=== PATIENT | male | born 1945 | race Caucasian/White ===

== ENCOUNTER 2018-05-19 09:34 | Emergency (ER) | payer OTHER ==
--- NOTE | 2018-05-19 09:59 | EDM.PDOC ---
ED HPI GENERAL MEDICAL PROBLEM - General Chief Complaint: General Stated Complaint: NEEDS PEG TUBE REPLACED Time Seen by Provider: 05/19/18 09:50 Source of Information: Reports: [facility] Records, Other (nursing clinical director) - History of Present Illness INITIAL COMMENTS - FREE TEXT/NARRATIVE: 72 YO WM presents to ER with complaints of PEG tube displaced this am. Pt tolerates food by mouth but he is an aspiration risk with his medications so he receives those through his PEG tube. Pt without any complaints. No sign of erythema or pus around stoma. Will replace with a temporary segal catheter. Onset: Today Location: Reports: Abdomen Improves with: Reports: None Worsens with: Reports: None Associated Symptoms: Reports: No Other Symptoms - Related Data Allergies Allergy/AdvReac Type Severity Reaction Status Date / Time amoxicillin Allergy Rash Verified 03/29/15 12:04 Home Meds: Home Meds . [Unable to Verify Home Med List] 03/29/15 [History] ED ROS GENERAL - Review of Systems Review Of Systems: ROS reveals no pertinent complaints other than HPI. Constitutional: Reports: No Symptoms HEENT: Reports: No Symptoms Respiratory: Reports: No Symptoms Cardiovascular: Reports: No Symptoms Endocrine: Reports: No Symptoms GI/Abdominal: Reports: No Symptoms : Reports: No Symptoms Musculoskeletal: Reports: No Symptoms Skin: Reports: No Symptoms Neurological: Reports: Confusion Psychiatric: Reports: Confusion Hematologic/Lymphatic: Reports: No Symptoms Immunologic: Reports: No Symptoms ED EXAM, GENERAL - Physical Exam Exam: See Below Exam Limited By: No Limitations General Appearance: Alert, WD/WN, No Apparent Distress Nose: Normal Inspection, Normal Mucosa, No Blood Throat/Mouth: Normal Inspection, Normal Lips, Normal Teeth, Normal Gums, Normal Oropharynx, Normal Voice, No Airway Compromise Head: Atraumatic, Normocephalic Neck: Normal Inspection, Supple, Non-Tender, Full Range of Motion Respiratory/Chest: No Respiratory Distress, Lungs Clear, Normal Breath Sounds, No Accessory Muscle Use, Chest Non-Tender Cardiovascular: Normal Peripheral Pulses, Regular Rate, Rhythm, No Edema, No Gallop, No JVD, No Murmur, No Rub GI/Abdominal: Normal Bowel Sounds, Soft, Non-Tender, No Organomegaly, No Distention, No Abnormal Bruit, No Mass Back Exam: Normal Inspection, Full Range of Motion, NT Extremities: Normal Inspection, Normal Range of Motion, Non-Tender, Normal Capillary Refill, No Pedal Edema Neurological: Alert, Confused Psychiatric: Normal Affect, Normal Mood Skin Exam: Warm, Dry, Intact, Normal Color, No Rash Lymphatic: No Adenopathy Departure - Departure Time of Disposition: 10:14 Disposition: DC/Tfer to [facility] 65 Condition: Good Clinical Impression: PEG tube malfunction - Discharge Information Instructions: Gastrostomy Tube Replacement Referrals: Dinesh Koch MD [Primary Care Provider] - Forms: ED Department Discharge Additional Instructions: 1. Discharge to [place] 2. follow up with GI for PEG tube replacement 3. return to ER for worsening symptoms 4. Okay to use segal/G tube replacement for meds and feedings - Assessment/Plan Assessment:: 1. PEG tube displaced- 16F segal catheter replaced since no G tube available Plan: 1. Discharge to [place] 2. follow up with GI for PEG tube replacement 3. return to ER for worsening symptoms 4. Okay to use segal/G tube replacement for meds and feedings - Free Text/Narrative Note: PEG tube replacement- area around stoma clean/prepped and draped using sterile technique. 16F segal catheter placed without complication. Balloon inflated and segal/replacement PEG flushes without difficulty. Pt tolerated procedure well.
== END 2018-05-19 10:30 ==
LOC: KA.ED 09:34
DX: K94.23 Gastrostomy malfunction (principal); Z88.1 Allergy status to other antibiotic agents
CPT/HCPCS: 43760; 99284

== ENCOUNTER 2018-05-20 03:34 | Inpatient (IN) | payer MEDICARE, OTHER ==
--- NOTE | 2018-05-20 03:54 | EDM.PDOC ---
ED HPI GENERAL MEDICAL PROBLEM - General Chief Complaint: General Stated Complaint: Altered mental status Time Seen by Provider: 05/20/18 03:34 Source of Information: Reports: EMS, [facility] Records History Limitations: Reports: Altered Mental Status - History of Present Illness INITIAL COMMENTS - FREE TEXT/NARRATIVE: 72 YO WM presents to ER by EMS with episode tonight at [place] where he pulled his PEG tube out and became unresponsive per retirement report. Pt had initial blood pressure systolically in the 80's prompting call to EMS. Upon EMS arrival pts blood pressure was systolically in the 90s. Pt with history of dementia and leukemia. Pt alert by nonverbal on inital exam. Pt was seen by me 12 hours ago for PEG tube replacement and was of similar mental status at that time which according to [employer] ATTENDANT who transported pt at that time was his baseline mental status. Onset: Sudden Location: Reports: Generalized Improves with: Reports: None Worsens with: Reports: None Associated Symptoms: Reports: Confusion - Related Data Allergies Allergy/AdvReac Type Severity Reaction Status Date / Time amoxicillin Allergy Rash Verified 05/20/18 03:49 gabapentin Allergy Cannot Verified 05/20/18 03:49 Remember Home Meds: Home Meds Acetaminophen [Tylenol Solution 160 MG/5 ML] 160 mg PO Q6H 05/19/18 [History] Atovaquone 10 ml PO DAILY@1300 05/19/18 [History] Bisacodyl [Biscolax] 10 mg RC DAILY PRN 05/19/18 [History] Cholecalciferol (Vitamin D3) [Vitamin D3] 1,000 unit PO DAILY@0300 05/19/18 [ History] Dextran 70/Hypromellose [Artificial Tears] 1 drop EYEBOTH TID 05/19/18 [History] Guar Gum [Nutrisource Fiber] 1 each PO TID 05/19/18 [History] Insulin Aspart [NovoLOG] 0 unit SUBCUT WITHMEALSANDBED PRN 05/19/18 [History] Insulin Glarg,Human.Rec.Analog [Lantus Solostar] 5 unit SUBCUT BEDTIME 05/19/18 [History] Lactose-Reduced Food/Fiber [Isosource 1.5 Hola Tube Feed] 70 ml PEGTUBE ASDIRECTED 05/19/18 [History] Magnesium Hydroxide [Milk of Magnesia] 30 ml PO DAILY PRN 05/19/18 [History] Magnesium Oxide 400 mg PO 5XDAY 05/19/18 [History] Metoprolol Tartrate 12.5 mg PO BID 05/19/18 [History] Multivitamin [Daily Multiple Vitamin] 1 tab PO DAILY@0300 05/19/18 [History] NaPh,Mb-Db/K Ph,MB-DB [Phos-NaK Powder] 1 each PO BID 05/19/18 [History] Omeprazole Suspension 20 mg GTUBE DAILY 05/19/18 [History] Posaconazole [Noxafil] 200 mg PO TID 05/19/18 [History] Potassium Bicarbonate/Cit Ac [Effer-K] 20 meq PO DAILY@1300 05/19/18 [History] QUEtiapine Fumarate [Quetiapine Fumarate] 12.5 mg PO BEDTIME 05/19/18 [History] Sodium Chloride 0.9% [Saline Flush Sterile Syringe] 10 ml FLUSH BID 05/19/18 [ History] Sucralfate [Carafate] 10 ml PO QID 05/19/18 [History] Tacrolimus [Prograf] 1 mg PO BID 05/19/18 [History] Tamsulosin HCl [Flomax] 0.8 mg PO DAILY@1800 05/19/18 [History] Ursodiol 300 mg PO TID 05/19/18 [History] Venlafaxine HCl [Venlafaxine HCl ER] 75 mg PO DAILY 05/19/18 [History] predniSONE [Prednisone] 2.5 mg PO DAILY 05/19/18 [History] traMADol HCl [Tramadol HCl] 50 mg PO Q6H PRN 05/19/18 [History] traMADol [Ultram] 50 mg PO BID 05/19/18 [History] valACYclovir HCl [valACYclovir] 1,000 mg PO TID 05/19/18 [History] ED ROS GENERAL - Review of Systems Review Of Systems: ROS reveals no pertinent complaints other than HPI. Neurological: Reports: Confusion ED EXAM, GENERAL - Physical Exam Exam: See Below Exam Limited By: Altered Mental Status General Appearance: Alert, WD/WN, No Apparent Distress Eye Exam: Bilateral Eye: PERRL Head: Atraumatic, Normocephalic Neck: Normal Inspection, Supple, Non-Tender, Full Range of Motion Respiratory/Chest: No Respiratory Distress, Lungs Clear, Normal Breath Sounds, No Accessory Muscle Use, Chest Non-Tender Cardiovascular: Normal Peripheral Pulses, Regular Rate, Rhythm, No Edema, No Gallop, No JVD, No Murmur, No Rub GI/Abdominal: Normal Bowel Sounds, Soft, No Organomegaly, No Distention, No Abnormal Bruit, No Mass, Tender (tenderness around stoma from displaced PEG tube ) Extremities: Normal Inspection, Normal Range of Motion, Non-Tender, Normal Capillary Refill, No Pedal Edema Neurological: Alert, CN II-XII Intact, Normal Reflexes, No Motor/Sensory Deficits, Inattentive, Confused Psychiatric: Normal Affect, Depressed Mood Skin Exam: Warm, Dry, Intact, Normal Color, No Rash Lymphatic: No Adenopathy EKG INTERPRETATION EKG Date: 05/20/18 Time: 04:14 Rhythm: NSR Rate (Beats/Min): 103 [place]: Normal P-Wave: Present QRS: Normal ST-T: Normal QT: Normal Comparison: NA - No Prior EKG Course - Vital Signs Last Recorded V/S: Last Vital Signs Temp 36.6 C 05/20/18 03:40 Pulse 102 H 05/20/18 03:40 Resp 16 05/20/18 03:40 BP 95/60 05/20/18 03:40 Pulse Ox 96 05/20/18 03:40 - Orders/Labs/Meds Orders: Active Orders 24 hr Category Date Time Status Cardiac Monitoring [RC] . DIRECTED Care 05/20/18 03:59 Ordered EKG Documentation Completion [RC] ASDIRECTED Care 05/20/18 03:47 Active Abdomen 1V Flat [CR] Stat Exams 05/20/18 03:45 Ordered Chest 1V Frontal [CR] Stat Exams 05/20/18 03:45 Ordered Head wo Cont [CT] Stat Exams 05/20/18 04:25 Ordered EKG 12 Lead [EK] Routine Ther 05/20/18 03:45 Ordered Labs: Laboratory Tests 05/20/18 05/20/18 05/20/18 Range/Units 03:55 04:10 04:10 WBC 10.04 H (5.00-10.00) 10^3/uL RBC 2.95 L (4.50-6.00) 10^6/uL Hgb 11.7 L (13.0-17.0) g/dL Hct 32.8 L (40.0-52.0) % MCV 111.2 H (82.0-92.0) fL MCH 39.7 H (27.0-31.0) pg MCHC 35.7 (32.0-36.0) g/dL RDW 14.7 H (11.5-14.5) % Plt Count 163 (150-400) 10^3/uL MPV 9.7 (7.4-10.4) fL Immature Gran % (Auto) 0.5 (0.0-5.0) % Neut % (Auto) 85.8 H (50.0-70.0) % Lymph % (Auto) 7.7 L (20.0-40.0) % [place] % (Auto) 5.7 (2.0-8.0) % Eos % (Auto) 0.2 L (1.0-3.0) % Baso % (Auto) 0.1 (0.0-1.0) % Immature Gran # (Auto) 0.05 (0.00-0.50) 10^3/uL Neut # (Auto) 8.62 H (2.50-7.00) 10^3/uL Lymph # (Auto) 0.77 L (1.00-4.00) 10^3/uL [place] # (Auto) 0.57 (0.10-0.80) 10^3/uL Eos # (Auto) 0.02 L (0.10-0.30) 10^3/uL Baso # (Auto) 0.01 (0.00-0.10) 10^3/uL Add Manual Diff Yes Neutrophils % (Manual) 88 H (50-70) % Lymphocytes % (Manual) 7 L (20-40) % Monocytes % (Manual) 5 (2-8) % Eosinophils % (Manual) 0 L (1-3) % Basophils % (Manual) 0 (0-1) % Absolute Neutrophils 8.84 Lymphocytes # (Manual) 0.70 Monocytes # (Manual) 0.50 Macrocytosis 1+ slight Sodium 134 L (136-145) mmol/L Potassium 3.9 (3.3-5.3) mmol/L Chloride 101 (98-115) mmol/L Carbon Dioxide 25.6 (21.0-32.0) mmol/L Anion Gap 11.3 (5-15) mmol/L BUN 10 (6-25) mg/dL Creatinine 0.61 (0.51-1.17) mg/dL Est Cr Clr Drug Dosing 97.60 mL/min Estimated GFR (MDRD) > 60 mL/min Glucose 158 mg/dL Calcium 7.7 L (8.7-10.3) mg/dL Total Bilirubin 0.5 (0.2-1.0) mg/dL AST 32 (15-37) U/L ALT 30 (12-78) U/L Alkaline Phosphatase 436 H (46-116) IU/L Creatine Kinase 86 (26-276) U/L CK-MB (CK-2) 1.10 (0.00-4.30) ng/mL Troponin I 0.05 (0.00-0.070) ng/mL Total Protein 5.0 L (6.4-8.2) g/dL Albumin 1.66 L (3.00-4.80) g/dL Specimen Type Ur[facility] Urine Color Dark yellow H (YELLOW) Urine Appearance Cloudy H (CLEAR) Urine pH 5.5 (5.0-9.0) Ur Specific [place] 1.020 (1.005-1.030) Urine Protein 100 H (NEGATIVE) mg/dL Urine Glucose (UA) Negative (NEGATIVE) mg/dL Urine Ketones Trace H (NEGATIVE) mg/dL Urine Occult Blood Moderate H (NEGATIVE) Urine Nitrite Positive H (NEGATIVE) Urine Bilirubin Small H (NEGATIVE) Urine Urobilinogen 1.0 (0.2-1.0) E.U./dL Ur Leukocyte Esterase Moderate H (NEGATIVE) Urine RBC 20-30 H /HPF Urine WBC 30-40 H /HPF Ur Epithelial Cells Rare /LPF Other Crystals Few /HPF Urine Bacteria Many H (NONE TO FEW) /HPF Urine Mucus Few H (NEGATIVE) /LPF Meds: Medications Discontinued Medications Generic Name Dose Route Start Last Admin Trade Name Freq PRN Reason Stop Dose Admin Ceftriaxone Sodium 1 gm 05/20/18 05:01 Rocephin IVPUSH 05/20/18 05:02 ONETIME ONE Sodium Chloride 1,000 mls @ 999 mls/hr 05/20/18 03:59 Normal Saline IV 05/20/18 04:59 .BOLUS ONE - Radiology Interpretation Free Text/Narrative:: CT head-Atropy CXR-NAD KUB- nonspecific bowel gas pattern Departure - Departure Time of Disposition: 05:29 Disposition: Admitted As Inpatient 68 Condition: Fair Clinical Impression: UTI, Urinary tract infectious disease, PEG tube malfunction Altered mental state Qualifiers: Altered mental status type: unspecified Qualified Code(s): R41.82 - Altered mental status, unspecified - Discharge Information Referrals: PCP,None [Primary Care Provider] - Forms: ED Department Discharge - My Orders Last 24 Hours: My Active Orders 05/20/18 03:45 Abdomen 1V Flat [CR] Stat Chest 1V Frontal [CR] Stat EKG 12 Lead [EK] Routine 05/20/18 03:47 EKG Documentation Completion [RC] ASDIRECTED 05/20/18 03:59 Cardiac Monitoring [RC] . DIRECTED 05/20/18 04:25 Head wo Cont [CT] Stat - Assessment/Plan Last 24 Hours: My Active Orders 05/20/18 03:45 Abdomen 1V Flat [CR] Stat Chest 1V Frontal [CR] Stat EKG 12 Lead [EK] Routine 05/20/18 03:47 EKG Documentation Completion [RC] ASDIRECTED 05/20/18 03:59 Cardiac Monitoring [RC] . DIRECTED 05/20/18 04:25 Head wo Cont [CT] Stat Assessment:: 1. Altered Mental status 2. UTI 3. borderline hypotension 4. displaced [facility]in 1g IV QD for UTI 3. lactic acid 4. hold replacement of PEG due to discomfort. 6, tolerating PO and dislodgement x 2 today 5. blood cultures x 2 6. supportive care
[2018-05-20] MEDS ORDERED: Sodium Chloride 0.9% 1,000 ML IV ONE (03:59)
[2018-05-20 04:53] LABS: ANION GAP 11.3 mmol/L (5-15); CHLORIDE,CL 101 mmol/L (98-115); SODIUM,NA 134 mmol/L (136-145)
[2018-05-20] MEDS ORDERED: cefTRIAXone 1 GM Vial IVPUSH ONE (05:01)
[2018-05-20] MEDS ORDERED: Sodium Chloride 0.9% 5 ML Syringe FLUSH PRN (05:31)
[2018-05-20] MEDS ORDERED: Sodium Chloride 0.9% 1,000 ML IV SCH (05:40)
[2018-05-20] MEDS: traMADol 50 MG Tab PO SCH ×2 (12:29→22:25)
[2018-05-20] MEDS: predniSONE 5 MG Tab PO SCH (12:29)
[2018-05-20] MEDS ORDERED: Omeprazole 2 MG/ML 150 ML Kit GTUBE SCH (12:30)
[2018-05-20] MEDS: Acetaminophen 325 MG Tab PO SCH ×3 (12:30→23:26)
[2018-05-20] MEDS ORDERED: Tacrolimus 0.5 MG Cap PO SCH (12:30)
[2018-05-20] MEDS: Sucralfate 1 GM Tab PO SCH ×3 (12:34→22:25)
[2018-05-20] MEDS: Carboxymethylcellulose Sodium 0.5% Ophth Soln 15 ML Bottle EYEBOTH SCH ×3 (12:34→22:27)
[2018-05-20] MEDS: Metoprolol Tartrate 25 MG Tab PO SCH ×2 (13:00→22:23)
[2018-05-20] MEDS: Magnesium Oxide 500 MG Tab PO SCH ×5 (13:01→22:45)
[2018-05-20] MEDS: Venlafaxine 37.5 MG Tab.ER PO SCH (13:01)
[2018-05-20] MEDS: Omeprazole 20 MG Cap.CR PO SCH (13:05)
--- NOTE | 2018-05-20 13:57 | PCM.HP ---
H&P History of Present Illness - General Date of Service: 05/20/18 Admit Problem/Dx: Admission Diagnosis/Problem Admission Diagnosis/Problem Altered mental status Source of Information: Family, Longterm Records, Old Records, RN History Limitations: Reports: Altered Mental Status - Related Data Allergies/Adverse Reactions: Allergies Allergy/AdvReac Type Severity Reaction Status Date / Time amoxicillin Allergy Rash Verified 05/20/18 03:49 gabapentin Allergy Cannot Verified 05/20/18 03:49 Remember Home Medications: Home Meds Acetaminophen [Tylenol Solution 160 MG/5 ML] 649.6 mg PO Q6H 05/19/18 [History] Atovaquone 10 ml PO DAILY@1300 05/19/18 [History] Bisacodyl [Biscolax] 10 mg RC DAILY PRN 05/19/18 [History] Cholecalciferol (Vitamin D3) [Vitamin D3] 2,000 unit PO DAILY@0300 05/19/18 [ History] Dextran 70/Hypromellose [Artificial Tears] 1 drop EYEBOTH TID 05/19/18 [History] Guar Gum [Nutrisource Fiber] 1 each PO TID 05/19/18 [History] Insulin Aspart [NovoLOG] 0 unit SUBCUT WITHMEALSANDBED PRN 05/19/18 [History] Insulin Glarg,Human.Rec.Analog [Lantus Solostar] 5 unit SUBCUT BEDTIME 05/19/18 [History] Magnesium Hydroxide [Milk of Magnesia] 30 ml PO DAILY PRN 05/19/18 [History] Magnesium Oxide 400 mg PO 5XDAY 05/19/18 [History] Metoprolol Tartrate 12.5 mg PO BID 05/19/18 [History] Multivitamin [Daily Multiple Vitamin] 1 tab PO DAILY@0300 05/19/18 [History] NaPh,Mb-Db/K Ph,MB-DB [Phos-NaK Powder] 1 each PO BID 05/19/18 [History] Omeprazole Suspension 20 mg GTUBE DAILY 05/19/18 [History] Potassium Bicarbonate/Cit Ac [Effer-K] 20 meq PO DAILY@1300 05/19/18 [History] QUEtiapine Fumarate [Quetiapine Fumarate] 12.5 mg PO BEDTIME 05/19/18 [History] Sodium Chloride 0.9% [Saline Flush Sterile Syringe] 10 ml FLUSH BID 05/19/18 [ History] Sucralfate [Carafate] 10 ml PO QID 05/19/18 [History] Tacrolimus [Prograf] 1 mg PO BID 05/19/18 [History] Tamsulosin HCl [Flomax] 0.8 mg PO DAILY@1800 05/19/18 [History] Ursodiol 300 mg PO TID 05/19/18 [History] Venlafaxine HCl [Venlafaxine HCl ER] 75 mg PO DAILY 05/19/18 [History] predniSONE [Prednisone] 2.5 mg PO DAILY 05/19/18 [History] traMADol [Ultram] 50 mg PO BID 05/19/18 [History] valACYclovir HCl [valACYclovir] 1,000 mg PO TID 05/19/18 [History] Noxafil 200 mg PEGTUBE TID 05/20/18 [History] traMADol HCl [Tramadol HCl] 50 mg PO QID PRN 05/20/18 [History] Past Medical History HEENT History: Reports: Hard of Hearing, Other (See Below) Other HEENT History: wears glasses Cardiovascular History: Reports: Afib, Other (See Below) Other Cardiovascular History: a-fib s/p ablation Respiratory History: Reports: Other (See Below) Other Respiratory History: spiculated lung nodule with elevated galactomannan Gastrointestinal History: Reports: Chronic Diarrhea, Other (See Below) Other Gastrointestinal History: malnutrition Genitourinary History: Reports: UTI, Recurrent, Other (See Below) Other Genitourinary History: indwelling segal cath Musculoskeletal History: Reports: Other (See Below) Other Musculoskeletal History: transfer with 2 assist - few steps only - ridge extremeties Neurological History: Reports: None Psychiatric History: Reports: Dementia, Psychosis, Other (See Below) Other Psychiatric History: steroid induced psychosis Endocrine/Metabolic History: Reports: IDDM, Vitamin D Deficiency Hematologic History: Reports: Anemia Immunologic History: Reports: Other (See Below) Other Immunologic History: 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 Dermatologic History: Reports: Other (See Below) Other Dermatologic History: fragile skin with scattered bruising and scabs - open areas - Infectious Disease History Infectious Disease History: Reports: Other (See Below) Other Infectious Disease History: hx EBV and CMV - Past Surgical History Cardiovascular Surgical History: Reports: Other (See Below) GI Surgical History: Reports: Hernia, Inguinal, Other (See Below) Other GI Surgeries/Procedures: peg tube Oncologic Surgical History: Reports: Bone Marrow Transplant Social & Family History - Family History Family Medical History: Unobtainable - Tobacco Use Smoking Status *Q: Never Smoker - Caffeine Use Caffeine Use: Reports: Coffee - Recreational Drug Use Recreational Drug Use: No H&P Review of Systems - Review of Systems: Review Of Systems: Unable To Obtain Free Text/Narrative: Patient resting in bed. Will open eyes and will softly communicate, but unable to understand what he is saying. at bedside and answers questions. Exam - Exam Exam: See Below - Vital Signs Vital Signs: Last Vital Signs Temp 98.6 F 05/20/18 11:00 Pulse 98 05/20/18 13:00 Resp 16 05/20/18 11:00 BP 105/68 05/20/18 13:00 Pulse Ox 98 05/20/18 11:00 Weight: 174 lb 5 oz - Exam Quality Assessment: Urinary Catheter (cloudy yellow with sediment present), DVT Prophylaxis (score of 6-will give lovenox subQ daily). No: Supplemental Oxygen General: Lethargic. No: Alert, Oriented HEENT: No: Mucosa Moist & Gordo (dry and pink) Lungs: Clear to Auscultation, Normal Respiratory Effort Cardiovascular: Regular Rhythm, Normal S1, Normal S2, Tachycardia GI/Abdominal Exam: Normal Bowel Sounds, Soft, Non-Tender Extremities: No Pedal Edema Skin: Warm, Dry, Wound (Patient has skin abrasions to his buttocks-see nursing photos), Other (peg tube site-pink in color with small amount of white drainage and surrounding erythema; left arm PICC line: excoriation noted around site-see nursing photos). No: Rash, Ecchymosis Neuro Extensive - Mental Status: Opens Eyes to Commands, Withdraws to Pain. No : Alert, Oriented x3, Slow Response to Commands Psychiatric: No: Alert, Anxious, Agitated - Patient Data Lab Results Last 24 hrs: Laboratory Results - last 24 hr 05/20/18 05/20/18 05/20/18 Range/Units 03:55 04:10 04:10 WBC 10.04 H (5.00-10.00) 10^3/uL RBC 2.95 L (4.50-6.00) 10^6/uL Hgb 11.7 L (13.0-17.0) g/dL Hct 32.8 L (40.0-52.0) % MCV 111.2 H (82.0-92.0) fL MCH 39.7 H (27.0-31.0) pg MCHC 35.7 (32.0-36.0) g/dL RDW 14.7 H (11.5-14.5) % Plt Count 163 (150-400) 10^3/uL MPV 9.7 (7.4-10.4) fL Immature Gran % (Auto) 0.5 (0.0-5.0) % Neut % (Auto) 85.8 H (50.0-70.0) % Lymph % (Auto) 7.7 L (20.0-40.0) % Dewey % (Auto) 5.7 (2.0-8.0) % Eos % (Auto) 0.2 L (1.0-3.0) % Baso % (Auto) 0.1 (0.0-1.0) % Immature Gran # (Auto) 0.05 (0.00-0.50) 10^3/uL Neut # (Auto) 8.62 H (2.50-7.00) 10^3/uL Lymph # (Auto) 0.77 L (1.00-4.00) 10^3/uL Dewey # (Auto) 0.57 (0.10-0.80) 10^3/uL Eos # (Auto) 0.02 L (0.10-0.30) 10^3/uL Baso # (Auto) 0.01 (0.00-0.10) 10^3/uL Add Manual Diff Yes Neutrophils % (Manual) 88 H (50-70) % Lymphocytes % (Manual) 7 L (20-40) % Monocytes % (Manual) 5 (2-8) % Eosinophils % (Manual) 0 L (1-3) % Basophils % (Manual) 0 (0-1) % Absolute Neutrophils 8.84 Lymphocytes # (Manual) 0.70 Monocytes # (Manual) 0.50 Macrocytosis 1+ slight Sodium 134 L (136-145) mmol/L Potassium 3.9 (3.3-5.3) mmol/L Chloride 101 (98-115) mmol/L Carbon Dioxide 25.6 (21.0-32.0) mmol/L Anion Gap 11.3 (5-15) mmol/L BUN 10 (6-25) mg/dL Creatinine 0.61 (0.51-1.17) mg/dL Est Cr Clr Drug Dosing 97.60 mL/min Estimated GFR (MDRD) > 60 mL/min Glucose 158 mg/dL POC Glucose (74-106) mg/dl Lactic Acid (0.4-2.0) mmol/L Calcium 7.7 L (8.7-10.3) mg/dL Magnesium (1.8-2.4) mg/dL Total Bilirubin 0.5 (0.2-1.0) mg/dL AST 32 (15-37) U/L ALT 30 (12-78) U/L Alkaline Phosphatase 436 H (46-116) IU/L Creatine Kinase 86 (26-276) U/L CK-MB (CK-2) 1.10 (0.00-4.30) ng/mL Troponin I 0.05 (0.00-0.070) ng/mL Total Protein 5.0 L (6.4-8.2) g/dL Albumin 1.66 L (3.00-4.80) g/dL Specimen Type Urincath Urine Color Dark yellow H (YELLOW) Urine Appearance Cloudy H (CLEAR) Urine pH 5.5 (5.0-9.0) Ur Specific [place] 1.020 (1.005-1.030) Urine Protein 100 H (NEGATIVE) mg/dL Urine Glucose (UA) Negative (NEGATIVE) mg/dL Urine Ketones Trace H (NEGATIVE) mg/dL Urine Occult Blood Moderate H (NEGATIVE) Urine Nitrite Positive H (NEGATIVE) Urine Bilirubin Small H (NEGATIVE) Urine Urobilinogen 1.0 (0.2-1.0) E.U./dL Ur Leukocyte Esterase Moderate H (NEGATIVE) Urine RBC 20-30 H /HPF Urine WBC 30-40 H /HPF Ur Epithelial Cells Rare /LPF Other Crystals Few /HPF Urine Bacteria Many H (NONE TO FEW) /HPF Urine Mucus Few H (NEGATIVE) /LPF 05/20/18 05/20/18 05/20/18 Range/Units 04:10 06:45 07:40 WBC (5.00-10.00) 10^3/uL RBC (4.50-6.00) 10^6/uL Hgb (13.0-17.0) g/dL Hct (40.0-52.0) % MCV (82.0-92.0) fL MCH (27.0-31.0) pg MCHC (32.0-36.0) g/dL RDW (11.5-14.5) % Plt Count (150-400) 10^3/uL MPV (7.4-10.4) fL Immature Gran % (Auto) (0.0-5.0) % Neut % (Auto) (50.0-70.0) % Lymph % (Auto) (20.0-40.0) % Dewey % (Auto) (2.0-8.0) % Eos % (Auto) (1.0-3.0) % Baso % (Auto) (0.0-1.0) % Immature Gran # (Auto) (0.00-0.50) 10^3/uL Neut # (Auto) (2.50-7.00) 10^3/uL Lymph # (Auto) (1.00-4.00) 10^3/uL Dewey # (Auto) (0.10-0.80) 10^3/uL Eos # (Auto) (0.10-0.30) 10^3/uL Baso # (Auto) (0.00-0.10) 10^3/uL Add Manual Diff Neutrophils % (Manual) (50-70) % Lymphocytes % (Manual) (20-40) % Monocytes % (Manual) (2-8) % Eosinophils % (Manual) (1-3) % Basophils % (Manual) (0-1) % Absolute Neutrophils Lymphocytes # (Manual) Monocytes # (Manual) Macrocytosis Sodium (136-145) mmol/L Potassium (3.3-5.3) mmol/L Chloride (98-115) mmol/L Carbon Dioxide (21.0-32.0) mmol/L Anion Gap (5-15) mmol/L BUN (6-25) mg/dL Creatinine (0.51-1.17) mg/dL Est Cr Clr Drug Dosing mL/min Estimated GFR (MDRD) mL/min Glucose mg/dL POC Glucose 138 H (74-106) mg/dl Lactic Acid 1.0 (0.4-2.0) mmol/L Calcium (8.7-10.3) mg/dL Magnesium 1.4 L (1.8-2.4) mg/dL Total Bilirubin (0.2-1.0) mg/dL AST (15-37) U/L ALT (12-78) U/L Alkaline Phosphatase (46-116) IU/L Creatine Kinase (26-276) U/L CK-MB (CK-2) (0.00-4.30) ng/mL Troponin I (0.00-0.070) ng/mL Total Protein (6.4-8.2) g/dL Albumin (3.00-4.80) g/dL Specimen Type Urine Color (YELLOW) Urine Appearance (CLEAR) Urine pH (5.0-9.0) Ur Specific [place] (1.005-1.030) Urine Protein (NEGATIVE) mg/dL Urine Glucose (UA) (NEGATIVE) mg/dL Urine Ketones (NEGATIVE) mg/dL Urine Occult Blood (NEGATIVE) Urine Nitrite (NEGATIVE) Urine Bilirubin (NEGATIVE) Urine Urobilinogen (0.2-1.0) E.U./dL Ur Leukocyte Esterase (NEGATIVE) Urine RBC /HPF Urine WBC /HPF Ur Epithelial Cells /LPF Other Crystals /HPF Urine Bacteria (NONE TO FEW) /HPF Urine Mucus (NEGATIVE) /LPF 05/20/18 Range/Units 12:01 WBC (5.00-10.00) 10^3/uL RBC (4.50-6.00) 10^6/uL Hgb (13.0-17.0) g/dL Hct (40.0-52.0) % MCV (82.0-92.0) fL MCH (27.0-31.0) pg MCHC (32.0-36.0) g/dL RDW (11.5-14.5) % Plt Count (150-400) 10^3/uL MPV (7.4-10.4) fL Immature Gran % (Auto) (0.0-5.0) % Neut % (Auto) (50.0-70.0) % Lymph % (Auto) (20.0-40.0) % [place]wey % (Auto) (2.0-8.0) % Eos % (Auto) (1.0-3.0) % Baso % (Auto) (0.0-1.0) % Immature Gran # (Auto) (0.00-0.50) 10^3/uL Neut # (Auto) (2.50-7.00) 10^3/uL Lymph # (Auto) (1.00-4.00) 10^3/uL [place]wey # (Auto) (0.10-0.80) 10^3/uL Eos # (Auto) (0.10-0.30) 10^3/uL Baso # (Auto) (0.00-0.10) 10^3/uL Add Manual Diff Neutrophils % (Manual) (50-70) % Lymphocytes % (Manual) (20-40) % Monocytes % (Manual) (2-8) % Eosinophils % (Manual) (1-3) % Basophils % (Manual) (0-1) % Absolute Neutrophils Lymphocytes # (Manual) Monocytes # (Manual) Macrocytosis Sodium (136-145) mmol/L Potassium (3.3-5.3) mmol/L Chloride (98-115) mmol/L Carbon Dioxide (21.0-32.0) mmol/L Anion Gap (5-15) mmol/L BUN (6-25) mg/dL Creatinine (0.51-1.17) mg/dL Est Cr Clr Drug Dosing mL/min Estimated GFR (MDRD) mL/min Glucose mg/dL POC Glucose 166 H (74-106) mg/dl Lactic Acid (0.4-2.0) mmol/L Calcium (8.7-10.3) mg/dL Magnesium (1.8-2.4) mg/dL Total Bilirubin (0.2-1.0) mg/dL AST (15-37) U/L ALT (12-78) U/L Alkaline Phosphatase (46-116) IU/L Creatine Kinase (26-276) U/L CK-MB (CK-2) (0.00-4.30) ng/mL Troponin I (0.00-0.070) ng/mL Total Protein (6.4-8.2) g/dL Albumin (3.00-4.80) g/dL Specimen Type Urine Color (YELLOW) Urine Appearance (CLEAR) Urine pH (5.0-9.0) Ur Specific [place] (1.005-1.030) Urine Protein (NEGATIVE) mg/dL Urine Glucose (UA) (NEGATIVE) mg/dL Urine Ketones (NEGATIVE) mg/dL Urine Occult Blood (NEGATIVE) Urine Nitrite (NEGATIVE) Urine Bilirubin (NEGATIVE) Urine Urobilinogen (0.2-1.0) E.U./dL Ur Leukocyte Esterase (NEGATIVE) Urine RBC /HPF Urine WBC /HPF Ur Epithelial Cells /LPF Other Crystals /HPF Urine Bacteria (NONE TO FEW) /HPF Urine Mucus (NEGATIVE) /LPF Result Diagrams: 05/20/18 04:10 05/20/18 04:10 Problem List Initiated/Reviewed/Updated: Yes Orders Last 24hrs: Active Orders 24 hr Category Date Time Status Patient Status [ADT] Routine ADT 05/20/18 05:31 Ordered Blood Glucose Check, Bedside [RC] QIDACANDBED Care 05/20/18 05:31 Active Cardiac Monitoring [RC] . DIRECTED Care 05/20/18 03:59 Inactive Communication Order [RC] DAILY Care 05/20/18 09:44 Active Communication Order [RC] DAILY Care 05/20/18 09:46 Active Intake and Output [RC] 1400,2200,0600 Care 05/20/18 11:06 Active Oxygen Therapy [RC] PRN Care 05/20/18 05:31 Active Up to Chair [RC] ASDIRECTED Care 05/20/18 05:31 Active VTE/DVT Education [RC] PER UNIT ROUTINE Care 05/20/18 05:31 Active Vital Signs [RC] 0300,0700,1100,1500,1900,2300 Care 05/20/18 05:31 Active [employer] Diet [DIET] Diet 05/20/18 Breakfast Active Abdomen 1V Flat [CR] Stat Exams 05/20/18 03:45 Stop Req Chest 1V Frontal [CR] Stat Exams 05/20/18 03:45 Taken Head wo Cont [CT] Stat Exams 05/20/18 04:25 Stop Req BASIC METABOLIC PANEL,BMP [CHEM] AM Lab 05/21/18 05:11 Ordered CBC WITH AUTO DIFF [HEME] AM Lab 05/21/18 05:11 Ordered CULTURE BLOOD [BC] Stat Lab 05/20/18 06:45 Received CULTURE BLOOD [BC] Stat Lab 05/20/18 07:30 Stop Req CULTURE URINE [RM] Stat Lab 05/20/18 03:55 Received MISCELLANEOUS CULT [MREF] Routine Lab 05/20/18 06:00 Received MISCELLANEOUS CULT [MREF] Routine Lab 05/20/18 06:10 Received MISCELLANEOUS CULT [MREF] Routine Lab 05/20/18 06:20 Received MISCELLANEOUS CULT [MREF] Routine Lab 05/20/18 10:30 Received TACROLIMUS ([id number]), BLOOD [REF] Routine Lab 05/21/18 05:00 Ordered Acetaminophen [Tylenol] Med 05/20/18 12:00 Active 650 mg PO Q6H Atovaquone [Atovaquone] Med 05/20/18 13:00 Pending 10 ml PO DAILY@1300 Carboxymethylcellulose Sodium [Refresh Tears 0.5%] Med 05/20/18 12:15 Active 0 ml EYEBOTH TID FA/Lycopene/Lut/MV,Ca,Iron,Min [Centrum] Med 05/21/18 03:00 Active 1 tab PO DAILY@0300 Insulin Detemir [Levemir] Med 05/20/18 21:00 Active 5 unit SUBCUT BEDTIME Magnesium Oxide Med 05/20/18 12:15 Active 500 mg PO 5XDAY Metoprolol Tartrate [Lopressor] Med 05/20/18 11:15 Active 12.5 mg PO BID Noxafil Med 05/20/18 14:00 Pending 200 mg PO TID Omeprazole Med 05/20/18 12:48 Active 20 mg PO ACBREAKFAST Potassium Bicarbonate/Cit Ac Med 05/20/18 13:00 Pending 20 meq PO DAILY@1300 QUEtiapine [SEROquel] Med 05/20/18 21:00 Active 12.5 mg PO BEDTIME Sodium Chloride 0.9% [Normal Saline] 1,000 ml Med 05/20/18 05:45 Active IV ASDIRECTED Sodium Chloride 0.9% [Saline Flush] Med 05/20/18 21:00 Active 10 ml IV BID Sucralfate [Carafate] Med 05/20/18 12:30 Active 1 gm PO QIDACANDBED Tacrolimus [Prograf] Med 05/20/18 12:30 Active 1 mg PO BID Ursodiol Med 05/20/18 14:00 Pending 300 mg PO TID Venlafaxine [Effexor XR] Med 05/20/18 12:30 Active 75 mg PO DAILY cefTRIAXone [Rocephin] Med 05/21/18 05:45 Active 1 gm IVPUSH Q24H predniSONE Med 05/20/18 12:30 Active 2.5 mg PO DAILY traMADol [Ultram] Med 05/20/18 11:15 Active 50 mg PO BID traMADol [Ultram] Med 05/20/18 11:07 Active 50 mg PO QID PRN valACYclovir [Valtrex] Med 05/20/18 14:00 Active 1,000 mg PO TID Blood Culture x2 Reflex Set [OM.PC] Stat Ot 05/20/18 05:31 Ordered Peripheral IV Insertion Adult [OM.PC] Routine Oth 05/20/18 05:31 Ordered Resuscitation Status Routine Resus Stat 05/20/18 05:31 Ordered EKG 12 Lead [EK] Routine Ther 05/20/18 03:45 Stop Req Medication Orders Acetaminophen (Tylenol) 650 mg PO Q6H [facility] Last Admin: 05/20/18 12:30 Dose: 650 mg Artificial Tears (Refresh Tears 0.5%) 0 ml EYEBOTH TID [facility] Last Admin: 05/20/18 13:01 Dose: Not Given Admin: 05/20/18 12:34 Dose: Not Given Ceftriaxone Sodium (Rocephin) 1 gm IVPUSH Q24H [facility] Sodium Chloride (Normal Saline) 1,000 mls @ 125 mls/hr IV ASDIRECTED [facility] Insulin Detemir (Levemir) 5 unit SUBCUT BEDTIME [facility] Magnesium Oxide (Magnesium Oxide) 500 mg PO 5XDAY [facility] Last Admin: 05/20/18 13:09 Dose: Not Given Admin: 05/20/18 13:01 Dose: 500 mg Metoprolol Tartrate (Lopressor) 12.5 mg PO BID [facility] Last Admin: 05/20/18 13:00 Dose: 12.5 mg Multivitamins/Minerals (Centrum) 1 tab PO DAILY@0300 [facility] Non-Formulary Medication (Atovaquone [Atovaquone]) 10 ml PO DAILY@1300 [facility] Non-Formulary Medication (Noxafil) 200 mg PO TID [facility] Non-Formulary Medication (Potassium Bicarbonate/Cit Ac) 20 meq PO DAILY@1300 [facility] Non-Formulary Medication (Ursodiol) 300 mg PO TID [facility] Omeprazole (Omeprazole) 20 mg PO ACBREAKFAST [facility] Last Admin: 05/20/18 13:05 Dose: 20 mg Prednisone (Prednisone) 2.5 mg PO DAILY [facility] Last Admin: 05/20/18 12:29 Dose: 2.5 mg Quetiapine Fumarate (Seroquel) 12.5 mg PO BEDTIME [facility] Sodium Chloride (Saline Flush) 10 ml IV BID [facility] Sucralfate (Carafate) 1 gm PO QIDACANDBED [facility] Last Admin: 05/20/18 12:34 Dose: 1 gm Tacrolimus (Prograf) 1 mg PO BID [facility] Tramadol HCl (Ultram) 50 mg PO BID [facility] Last Admin: 05/20/18 12:29 Dose: 50 mg Tramadol HCl (Ultram) 50 mg PO QID PRN PRN Reason: Pain Valacyclovir HCl (Valtrex) 1,000 mg PO TID [facility] Venlafaxine HCl (Effexor Xr) 75 mg PO DAILY [facility] Last Admin: 05/20/18 13:01 Dose: 75 mg Assessment/Plan Comment:: HPI: This is a 72 year old male who was brought to the ED via ambulance due to altered mental status and hypotension. The patient resides at [facility]. He had been seen on the morning on 05/19/18 in the ED as well as he had pulled his PEG tube out. The ED provider was able to replace this and sent him back to the assisted. When the patient arrived a second time due to the above mentioned symptoms, it was again noted by the assisted that he had pulled his PEG tube out. EMS noted systolic blood pressures in the 90s. The patient has a history of being somnolent and minimally communicative. The patient is typically followed by Dr. Castaneda in [place] for his primary care. The patient has a history of MDS/Myeloproliferative disorder and is followed by oncology. He is status post non-myeloablative peripheral blood stem cell transplant at the [facility] on 02/23/17. His sister was the donor. Patient's notes he had to have his gallbladder removed in December 2017 and he has been deconditioned since that time. She notes that the segal catheter was placed after that surgery (December 2017). She states he has pulled the catheter out a few times, but it has always been put back in. She is unsure why. Pertinent ED workup: WBC 10.4 with left shift Hgb 11.7 (baseline) Lactic acid 1.0 Calcium 7.7 corrects to 9.6 Alk phos 436 (down from 571 a couple months ago) UA revealed positive nitrites & many bacteria Head CT negative Chest x-ray negative Abdominal x-ray negative for acute pathology EKG-sinus tachycardia with premature supraventricular complexes (changed from previous EKG (2015) that noted NSR) Troponin 0.05 Given 1 liter of NS and started on IV rocephin BC and urine culture pending Upon admission to the floor patient required further work-up with a magnesium level and medication reconciliation. Primary Impression/Plan: UTI. UA positive. Treating with 1 gm IV rocephin daily. Urine culture pending. Altered mental status. After further chart review in [facility] and discussion with , he is near his baseline with being soft spoken and minimally communicative. Borderline hypotension. 100-110s systolic. NS @ 125 mL/hr. No documented evidence of heart failure on ECHO dated 2016. Tachycardia, mild. Pulse 90-132. Likely related to current infection. Continue lopressor 12.5 mg BID. PEG tube dysfunction. Patient has pulled out the PEG tube twice in 24 hours. Will hold off on re-insertion as per assisted report patient has been eating orally and only using the tube for a few medications for the past week. agreeable to leave tube out. Will continue to monitor site. Hypomagnesemia. This is the reason for the PICC line per . He has been getting weekly magnesium infusions. Mg 1.4. Will give 2 gm IV Mg today. Continue with oral supplementation. PICC line in place with surrounding skin break down, POA. Culture obtained. Dressing applied. Buttock abrasions, POA. Barrier cream applied. May consider GET ointment. Secondary Impression/Plan: History of atrial fib/flutter, s/p ablation. History of viral overload & EBV. Question if this is the reason for valtrex use. ROXANE. Hyperlipidemia. MDS/Myeloproliferative disorder. Patient is followed by Dr. Anne, oncologist at [facility]. He was recently seen by her on 05/11/18. She had decreased his lopressor at that visit as he was hypotensive. senior care note states Dr. Anne was contacted yesterday (05/19/18) about a high tacrolimus level. She ordered for it to be held yesterday and resume normal dose on Monday; draw level on Monday (05/21/18) before giving dose. Will proceed with oncology's instructions. 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 History of CMV on prophylaxis. Chronic anemia, stable. Hgb 11.7. GERD. On omeprazole. Type 2 diabetes mellitus. Accuchecks QID. Levemir 5 units nightly. Will provide low dose sliding scale novolog. Osteoarthritis of multiple joints. Continue tylenol and tramadol. DVT prophylaxis. Score of 6. Lovenox daily. Overall plan: Continue with IV fluids and rocephin. Continue to monitor mental and hemodynamic status. Discussion held with regarding code status. She states he is to be a FULL CODE at this time. She states her hopes are for him to regain his strength and come back home. She does not desire to put the PEG tube back in. Unable to find record in [facility] system as to why the catheter has been in place this long, however given current weakness and buttock skin break down will continue for now.
[2018-05-20] MEDS ORDERED: valACYclovir 500 MG Tab PO SCH (14:00)
[2018-05-20] MEDS ORDERED: Sodium Chloride 0.9% 10 ML Syringe FLUSH SCH (14:00)
[2018-05-20] MEDS: Sodium Chloride 0.9% 1,000 ML IV SCH ×2 (14:20→23:23)
[2018-05-20] MEDS ORDERED: Magnesium Sulfate/Water 2 GM in Premix Bag 1 BAG IV ONE ×2 (14:33→16:00)
[2018-05-20] MEDS ORDERED: TACROLIMUS 1 MG PO ONE (15:15)
[2018-05-20] MEDS ORDERED: VALACYCLOVIR 1000 MG PO ONE (15:15)
[2018-05-20] MEDS: Enoxaparin 40 MG/0.4 ML Syringe SUBCUT SCH (15:34)
[2018-05-20] MEDS ORDERED: WATER IV ONE (15:59)
[2018-05-20] MEDS ORDERED: MAGNESIUM SULFATE IV ONE (15:59)
[2018-05-20] MEDS: Insulin Aspart 100 Units/ML 3 ML Pen SUBCUT SCH ×2 (17:34→22:26)
[2018-05-20] MEDS: QUEtiapine 25 MG Tab PO SCH (22:26)
[2018-05-20] MEDS: VALACYCLOVIR 1000 MG PO SCH (22:28)
[2018-05-20] MEDS: Sodium Chloride 0.9% 10 ML Syringe IV SCH (22:28)
[2018-05-20] MEDS: TACROLIMUS 1 MG PO SCH (22:30)
[2018-05-20] MEDS: Insulin Detemir 100 Units/ML 3 ML Pen SUBCUT SCH (22:31)
[2018-05-21] MEDS ORDERED: Multivitamins with Minerals/Iron/Folic Acid/Lycopene Tab PO SCH (03:00)
[2018-05-21] MEDS: cefTRIAXone 1 GM Vial IVPUSH SCH (06:11)
[2018-05-21] MEDS: Acetaminophen 325 MG Tab PO SCH ×4 (06:11→23:51)
[2018-05-21] MEDS: Sodium Chloride 0.9% 1,000 ML IV SCH ×2 (07:48→18:30)
[2018-05-21 07:55] LABS: ANION GAP 12.4 mmol/L (5-15); CHLORIDE,CL 106 mmol/L (98-115); SODIUM,NA 140 mmol/L (136-145)
[2018-05-21] MEDS: Omeprazole 20 MG Cap.CR PO SCH (07:59)
[2018-05-21] MEDS: Insulin Aspart 100 Units/ML 3 ML Pen SUBCUT SCH ×4 (07:59→21:13)
[2018-05-21] MEDS: Magnesium Oxide 500 MG Tab PO SCH ×5 (07:59→20:31)
[2018-05-21] MEDS: Sucralfate 1 GM Tab PO SCH ×4 (08:01→21:25)
[2018-05-21] MEDS: VALACYCLOVIR 1000 MG PO SCH ×3 (08:01→20:33)
[2018-05-21] MEDS: predniSONE 5 MG Tab PO SCH (08:03)
[2018-05-21] MEDS: traMADol 50 MG Tab PO SCH ×2 (08:04→17:53)
[2018-05-21] MEDS: Metoprolol Tartrate 25 MG Tab PO SCH ×2 (08:08→20:31)
[2018-05-21] MEDS: Venlafaxine 37.5 MG Tab.ER PO SCH ×2 (08:33→13:53)
[2018-05-21] MEDS: Venlafaxine 37.5 MG Cap.ER PO SCH ×2 (08:34→13:33)
[2018-05-21] MEDS: TACROLIMUS 1 MG PO SCH ×2 (10:26→20:31)
[2018-05-21] MEDS: Potassium Chloride 20 MEQ Packet PO SCH ×2 (10:51→13:39)
[2018-05-21] MEDS: Carboxymethylcellulose Sodium 0.5% Ophth Soln 15 ML Bottle EYEBOTH SCH ×3 (10:52→20:33)
[2018-05-21] MEDS: Sodium Chloride 0.9% 10 ML Syringe IV SCH ×2 (10:52→20:32)
[2018-05-21] MEDS: Multivitamins with Minerals/Iron/Folic Acid/Lycopene Tab PO SCH (11:20)
--- NOTE | 2018-05-21 11:28 | PCM.PN ---
- General Info Date of Service: 05/21/18 Subjective Update: Due to the patient's poor inability to communicate review of systems very limited Functional Status: Reports: Pain Controlled, Tolerating Diet, New Symptoms ( Leakage around PICC line and wound near site. ). Denies: Urinating (Indwelling Segal catheter) - Review of Systems Pulmonary: Reports: No Symptoms Cardiovascular: Denies: Chest Pain Gastrointestinal: Reports: No Symptoms - Patient Data Vitals - Most Recent: Last Vital Signs Temp 98.3 F 05/21/18 06:12 Pulse 124 H 05/21/18 08:08 Resp 16 05/21/18 06:12 BP 93/69 05/21/18 08:08 Pulse Ox 98 05/21/18 06:12 Weight - Most Recent: 174 lb 5 oz I&O - Last 24 Hours: Intake & Output 05/20/18 05/21/18 05/21/18 22:59 06:59 14:59 Intake Total 995 992 Output Total 500 600 Balance 495 392 Lab Results Last 24 Hours: Laboratory Results - last 24 hr 05/20/18 05/20/18 05/20/18 Range/Units 04:10 12:01 17:32 WBC (5.00-10.00) 10^3/uL RBC (4.50-6.00) 10^6/uL Hgb (13.0-17.0) g/dL Hct (40.0-52.0) % MCV (82.0-92.0) fL MCH (27.0-31.0) pg MCHC (32.0-36.0) g/dL RDW (11.5-14.5) % Plt Count (150-400) 10^3/uL MPV (7.4-10.4) fL Immature Gran % (Auto) (0.0-5.0) % Neut % (Auto) (50.0-70.0) % Lymph % (Auto) (20.0-40.0) % Marathon % (Auto) (2.0-8.0) % Eos % (Auto) (1.0-3.0) % Baso % (Auto) (0.0-1.0) % Immature Gran # (Auto) (0.00-0.50) 10^3/uL Neut # (Auto) (2.50-7.00) 10^3/uL Lymph # (Auto) (1.00-4.00) 10^3/uL Marathon # (Auto) (0.10-0.80) 10^3/uL Eos # (Auto) (0.10-0.30) 10^3/uL Baso # (Auto) (0.00-0.10) 10^3/uL Sodium (136-145) mmol/L Potassium (3.3-5.3) mmol/L Chloride (98-115) mmol/L Carbon Dioxide (21.0-32.0) mmol/L Anion Gap (5-15) mmol/L BUN (6-25) mg/dL Creatinine (0.51-1.17) mg/dL Est Cr Clr Drug Dosing mL/min Estimated GFR (MDRD) mL/min Glucose mg/dL POC Glucose 166 H 122 H (74-106) mg/dl Calcium (8.7-10.3) mg/dL Magnesium 1.4 L (1.8-2.4) mg/dL 05/20/18 05/21/18 05/21/18 Range/Units 22:01 07:20 07:20 WBC 5.39 (5.00-10.00) 10^3/uL RBC 2.51 L (4.50-6.00) 10^6/uL Hgb 9.8 L D (13.0-17.0) g/dL Hct 28.6 L (40.0-52.0) % MCV 113.9 H (82.0-92.0) fL MCH 39.0 H (27.0-31.0) pg MCHC 34.3 (32.0-36.0) g/dL RDW 14.6 H (11.5-14.5) % Plt Count 135 L (150-400) 10^3/uL MPV 9.9 (7.4-10.4) fL Immature Gran % (Auto) 0.7 (0.0-5.0) % Neut % (Auto) 76.5 H (50.0-70.0) % Lymph % (Auto) 11.9 L (20.0-40.0) % Marathon % (Auto) 9.8 H (2.0-8.0) % Eos % (Auto) 0.9 L (1.0-3.0) % Baso % (Auto) 0.2 (0.0-1.0) % Immature Gran # (Auto) 0.04 (0.00-0.50) 10^3/uL Neut # (Auto) 4.12 (2.50-7.00) 10^3/uL Lymph # (Auto) 0.64 L (1.00-4.00) 10^3/uL Marathon # (Auto) 0.53 (0.10-0.80) 10^3/uL Eos # (Auto) 0.05 L (0.10-0.30) 10^3/uL Baso # (Auto) 0.01 (0.00-0.10) 10^3/uL Sodium 140 (136-145) mmol/L Potassium 3.4 (3.3-5.3) mmol/L Chloride 106 (98-115) mmol/L Carbon Dioxide 25.0 (21.0-32.0) mmol/L Anion Gap 12.4 (5-15) mmol/L BUN 6 (6-25) mg/dL Creatinine 0.48 L (0.51-1.17) mg/dL Est Cr Clr Drug Dosing 157.18 mL/min Estimated GFR (MDRD) > 60 mL/min Glucose 65 mg/dL POC Glucose 132 H (74-106) mg/dl Calcium 7.5 L (8.7-10.3) mg/dL Magnesium (1.8-2.4) mg/dL 05/21/18 Range/Units 07:46 WBC (5.00-10.00) 10^3/uL RBC (4.50-6.00) 10^6/uL Hgb (13.0-17.0) g/dL Hct (40.0-52.0) % MCV (82.0-92.0) fL MCH (27.0-31.0) pg MCHC (32.0-36.0) g/dL RDW (11.5-14.5) % Plt Count (150-400) 10^3/uL MPV (7.4-10.4) fL Immature Gran % (Auto) (0.0-5.0) % Neut % (Auto) (50.0-70.0) % Lymph % (Auto) (20.0-40.0) % Marathon % (Auto) (2.0-8.0) % Eos % (Auto) (1.0-3.0) % Baso % (Auto) (0.0-1.0) % Immature Gran # (Auto) (0.00-0.50) 10^3/uL Neut # (Auto) (2.50-7.00) 10^3/uL Lymph # (Auto) (1.00-4.00) 10^3/uL Marathon # (Auto) (0.10-0.80) 10^3/uL Eos # (Auto) (0.10-0.30) 10^3/uL Baso # (Auto) (0.00-0.10) 10^3/uL Sodium (136-145) mmol/L Potassium (3.3-5.3) mmol/L Chloride (98-115) mmol/L Carbon Dioxide (21.0-32.0) mmol/L Anion Gap (5-15) mmol/L BUN (6-25) mg/dL Creatinine (0.51-1.17) mg/dL Est Cr Clr Drug Dosing mL/min Estimated GFR (MDRD) mL/min Glucose mg/dL POC Glucose 71 L (74-106) mg/dl Calcium (8.7-10.3) mg/dL Magnesium (1.8-2.4) mg/dL Nikolay Results Last 24 Hours: Microbiology 05/20/18 03:55 Urine Culture - Final Urine, Segal Cath (Indwelling) 05/20/18 07:30 Aerobic Blood Culture - Preliminary Blood - Venous - Lab Draw NO GROWTH AFTER 1 DAY Anaerobic Blood Culture - Preliminary NO GROWTH AFTER 1 DAY 05/20/18 06:45 Aerobic Blood Culture - Final Blood - Venous Anaerobic Blood Culture - Final Med Orders - Current: Current Medications Acetaminophen (Tylenol) 650 mg PO Q6H [facility] Last Admin: 05/21/18 06:11 Dose: Not Given Artificial Tears (Refresh Tears 0.5%) 0 ml EYEBOTH TID [facility] Last Admin: 05/20/18 22:27 Dose: 1 drop Ceftriaxone Sodium (Rocephin) 1 gm IVPUSH Q24H [facility] Last Admin: 05/21/18 06:11 Dose: 1 gm Enoxaparin Sodium (Lovenox) 40 mg SUBCUT Q24H [facility] Last Admin: 05/20/18 15:34 Dose: 40 mg Sodium Chloride (Normal Saline) 1,000 mls @ 125 mls/hr IV ASDIRECTED [facility] Last Admin: 05/21/18 07:48 Dose: 125 mls/hr Insulin Aspart (Novolog) 0 unit SUBCUT WITHMEALSANDBED [facility]; Protocol Last Admin: 05/21/18 07:59 Dose: Not Given Insulin Detemir (Levemir) 5 unit SUBCUT BEDTIME [facility] Last Admin: 05/20/18 22:31 Dose: 5 units Magnesium Oxide (Magnesium Oxide) 500 mg PO 5XDAY [facility] Last Admin: 05/21/18 07:59 Dose: 500 mg Metoprolol Tartrate (Lopressor) 12.5 mg PO BID [facility] Last Admin: 05/21/18 08:08 Dose: 12.5 mg Multivitamins/Minerals (Centrum) 1 tab PO DAILY@0300 [facility] Last Admin: 05/21/18 06:11 Dose: Not Given Non-Formulary Medication (Atovaquone [Atovaquone]) 10 ml PO DAILY@1300 [facility] Non-Formulary Medication (Noxafil) 200 mg PO TID [facility] Non-Formulary Medication (Potassium Bicarbonate/Cit Ac) 20 meq PO DAILY@1300 [facility] Non-Formulary Medication (Ursodiol) 300 mg PO TID [facility] Omeprazole (Omeprazole) 20 mg PO ACBREAKFAST [facility] Last Admin: 05/21/18 07:59 Dose: 20 mg Valacyclovir 1000 Mg (Tab*Pt Own Med*) 0 each PO TID [facility] Last Admin: 05/21/18 08:01 Dose: 1 each Tacrolimus 1 Mg Cap* (Pt Own Med*) 0 each PO BID [facility] Last Admin: 05/21/18 10:26 Dose: Not Given Prednisone (Prednisone) 2.5 mg PO DAILY [facility] Last Admin: 05/21/18 08:03 Dose: 2.5 mg Quetiapine Fumarate (Seroquel) 12.5 mg PO BEDTIME [facility] Last Admin: 05/20/18 22:26 Dose: 12.5 mg Sodium Chloride (Saline Flush) 10 ml IV BID [facility] Last Admin: 05/20/18 22:28 Dose: 10 ml Sucralfate (Carafate) 1 gm PO QIDACANDBED [facility] Last Admin: 05/21/18 08:01 Dose: 1 gm Tramadol HCl (Ultram) 50 mg PO BID [facility] Last Admin: 05/21/18 08:04 Dose: 50 mg Tramadol HCl (Ultram) 50 mg PO QID PRN PRN Reason: Pain Venlafaxine HCl (Effexor Xr) 75 mg PO DAILY [facility] Last Admin: 05/20/18 13:01 Dose: 75 mg Discontinued Medications Ceftriaxone Sodium (Rocephin) 1 gm IVPUSH ONETIME ONE Stop: 05/20/18 05:02 Last Admin: 05/20/18 05:09 Dose: 1 gm Sodium Chloride (Normal Saline) 1,000 mls @ 999 mls/hr IV .BOLUS ONE Stop: 05/20/18 04:59 Last Admin: 05/20/18 04:40 Dose: 999 mls/hr Magnesium Sulfate 2 gm/ Premix 50 mls @ 150 mls/hr IV ONETIME ONE Stop: 05/20/18 14:52 Last Admin: 05/20/18 15:20 Dose: Not Given Magnesium Sulfate 2 gm/ Premix 50 mls @ 50 mls/hr IV ONETIME ONE Stop: 05/20/18 16:59 Magnesium Sulfate 2 gm/ Premix 50 mls @ 50 mls/hr IV ONETIME ONE Stop: 05/20/18 16:58 Last Admin: 05/20/18 16:35 Dose: 50 mls/hr Sodium Chloride (Normal Saline) 1,000 mls @ 125 mls/hr IV ASDIRECTED [facility] Stop: 05/20/18 14:00 Last Admin: 05/20/18 05:40 Dose: 125 mls/hr Omeprazole (First-Omeprazole) 0 each GTUBE ACBREAKFAST [facility] Last Admin: 05/20/18 12:48 Dose: Not Given Valacyclovir 1000 Mg (Tab*Pt Own Med*) 0 each PO ONETIME ONE Stop: 05/20/18 15:16 Last Admin: 05/20/18 15:37 Dose: 1,000 each Tacrolimus 1 Mg Cap* (Pt Own Med*) 0 each PO ONETIME ONE Stop: 05/20/18 15:16 Last Admin: 05/20/18 15:39 Dose: 1 each Sodium Chloride (Syrex Flush) 5 ml FLUSH Q8HR PRN PRN Reason: Keep Vein Open Sodium Chloride (Saline Flush) 10 ml FLUSH Q8HR [facility] Tacrolimus (Prograf) 1 mg PO BID [facility] Last Admin: 05/20/18 15:21 Dose: Not Given Valacyclovir HCl (Valtrex) 1,000 mg PO TID [facility] Last Admin: 05/20/18 15:21 Dose: Not Given - Exam Quality Assessment: No: Supplemental Oxygen General: Alert, Cooperative. No: Oriented Neck: Supple Lungs: Clear to Auscultation, Normal Respiratory Effort Cardiovascular: Regular Rate, Regular Rhythm GI/Abdominal Exam: Abnormal Bowel Sounds (Hypotonic bowel tones). No: Distended (Male) Exam: Deferred Back Exam: No: CVA Tenderness (L), CVA Tenderness (R) Extremities: No: Pedal Edema Skin: Other (PICC line dressing soddend, 4 cm x 2 cm superficial skin abrasion inferior to PICC line insertion, also has fluid-filled vesicles just superior to antecubital area left arm) Wound/Incisions: Drainage. No: Dressing Dry and Intact Neurological: Sensation Intact Psy/Mental Status: Alert, Labile Mood. No: Agitated - Problem List Review Problem List Initiated/Reviewed/Updated: Yes - Plan Plan:: HPI: This is a 72 year old male who was brought to the ED via ambulance due to altered mental status and hypotension. The patient resides at [facility]. He had been seen on the morning on 05/19/18 in the ED as well as he had pulled his PEG tube out. The ED provider was able to replace this and sent him back to the alf. When the patient arrived a second time due to the above mentioned symptoms, it was again noted by the alf that he had pulled his PEG tube out. EMS noted systolic blood pressures in the 90s. The patient has a history of being somnolent and minimally communicative. The patient is typically followed by Dr. Castaneda in [place], [place] for his primary care. The patient has a history of MDS/Myeloproliferative disorder and is followed by oncology. He is status post non-myeloablative peripheral blood stem cell transplant at the [facility] on 02/23/17. His sister was the donor. Patient's notes he had to have his gallbladder removed in December 2017 and he has been deconditioned since that time. She notes that the segal catheter was placed after that surgery (December 2017). She states he has pulled the catheter out a few times, but it has always been put back in. She is unsure why. Other history, patient was recently discharged from [facility] for nutritional therapy, antibiotics, wound care and decreased mentation. She had underwent a laparoscopic cholecystectomy at the [facility] which was complicated after he developed right upper quadrant fluid/abscess collection which resulted in drain placement. He required antibiotics and the drain was eventually removed. 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 His flareup included him having terminal ileitis was placed on high dose prednisone along with chronic immunosuppressant medications. Due to high dose prednisone he became severely delirious far above his baseline however he improved greatly after he was weaned from the steroids. Pertinent ED workup: WBC 10.4 with left shift Hgb 11.7 (baseline) Lactic acid 1.0 Calcium 7.7 corrects to 9.6 Alk phos 436 (down from 571 a couple months ago) UA revealed positive nitrites & many bacteria Head CT negative Chest x-ray negative Abdominal x-ray negative for acute pathology EKG-sinus tachycardia with premature supraventricular complexes (changed from previous EKG (2015) that noted NSR) Troponin 0.05 Given 1 liter of NS and started on IV rocephin Primary Impression/Plan: UTI. Complicated, likely colonization and catheter associated due to indwelling Segal. Discontinue Segal catheter, monitor for retention and need for replacement Continue rocephin. Culture showing gram-negative and gram-positive rods. ESBL a concern Aerobic blood culture positive for gram-positive cocci Pancytopenia, likely due to recent transplant and immunosuppressive therapy, monitor levels carefully History of UAR; due to catheter-associated infection and concern for ESBL will TWOC today--assess for urine retention Dehydration, continue with isotonic saline Delirium, chronic, Now at baseline, afebrile, PEG tube displacement, Patient has pulled out the PEG tube x2, Will hold off on re-insertion as per alf report patient has been eating orally and only using the tube for a few medications for the past week. agreeable to leave tube out. Will continue to monitor site. Daily weights, monitor nutritional status Hypomagnesemia. Magnesium IV, Change out PICC line today 2/2 surrounding skin break down with sepsis/infection concerns, culture catheter tip, monitor magnesium carefully. Monitor calcium and potassium carefully. Hopefully patient can maintain levels orally Buttock abrasions, POA. Barrier cream applied. May consider GET ointment. Secondary Impression/Plan: History of atrial fib/flutter, s/p ablation. History of viral overload & EBV. Question if this is the reason for valtrex use. HLD, ROXANE MDS/Myeloproliferative disorder. Patient is followed by Dr. Anne, oncologist at [facility]. He was recently seen by her on 05/11/18. She had decreased his lopressor at that visit as he was hypotensive. [facility] Dr. Anne was contacted (05/19/18) about a elevated tacrolimus level. She ordered for it to be held yesterday and resume normal dose on Monday; draw level on Monday ( 05/21/18) before giving dose. Will proceed with oncology's instructions. 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 Continue budesonide, assess Tacrolimus levels todays. History of CMV on prophylaxis. Chronic anemia, stable. Hgb 9.8. GERD. On PPI. Type 2 diabetes mellitus. Accuchecks QID. Levemir 5 units nightly. Will provide low dose sliding scale novolog. Osteoarthritis of multiple joints. Continue tylenol and tramadol. DVT prophylaxis. Score of 6. Lovenox daily. Monitor platelets Overall plan: TWOC, monitor for retention and the need for replacement, discontinue PICC line for now, culture catheter tip. Carefully monitor patient' s oral intake status. Will determine if patient can maintain magnesium levels orally
[2018-05-21] MEDS: Enoxaparin 40 MG/0.4 ML Syringe SUBCUT SCH (16:00)
[2018-05-21] MEDS: QUEtiapine 25 MG Tab PO SCH (20:32)
[2018-05-21] MEDS ORDERED: Morphine 2 MG/ML Syringe ONE (20:56)
[2018-05-21] MEDS: Insulin Detemir 100 Units/ML 3 ML Pen SUBCUT SCH (21:24)
[2018-05-22] MEDS: Sodium Chloride 0.9% 1,000 ML IV SCH (02:33)
[2018-05-22] MEDS: cefTRIAXone 1 GM Vial IVPUSH SCH (06:00)
[2018-05-22] MEDS: Acetaminophen 325 MG Tab PO SCH ×4 (06:01→22:14)
[2018-05-22] MEDS: Sucralfate 1 GM Tab PO SCH ×4 (06:04→21:24)
[2018-05-22] MEDS: Omeprazole 20 MG Cap.CR PO SCH (08:03)
[2018-05-22 08:04] LABS: ANION GAP 14.7 mmol/L (5-15); CHLORIDE,CL 106 mmol/L (98-115); SODIUM,NA 139 mmol/L (136-145)
[2018-05-22] MEDS: Magnesium Oxide 500 MG Tab PO SCH ×5 (08:09→20:27)
[2018-05-22] MEDS: Multivitamins with Minerals/Iron/Folic Acid/Lycopene Tab PO SCH (08:09)
[2018-05-22] MEDS: Metoprolol Tartrate 25 MG Tab PO SCH ×2 (08:09→20:27)
[2018-05-22] MEDS: TACROLIMUS 1 MG PO SCH ×2 (08:10→20:38)
[2018-05-22] MEDS: predniSONE 5 MG Tab PO SCH (08:10)
[2018-05-22] MEDS: Venlafaxine 37.5 MG Cap.ER PO SCH (08:10)
[2018-05-22] MEDS: VALACYCLOVIR 1000 MG PO SCH ×2 (08:11→14:07)
[2018-05-22] MEDS: Carboxymethylcellulose Sodium 0.5% Ophth Soln 15 ML Bottle EYEBOTH SCH ×3 (08:11→20:29)
[2018-05-22] MEDS: Sodium Chloride 0.9% 10 ML Syringe IV SCH ×2 (08:12→20:29)
[2018-05-22] MEDS: Insulin Aspart 100 Units/ML 3 ML Pen SUBCUT SCH ×4 (08:24→22:15)
[2018-05-22] MEDS: traMADol 50 MG Tab PO SCH ×2 (08:30→18:03)
[2018-05-22] MEDS ORDERED: Venlafaxine 37.5 MG Cap.ER PO SCH (09:00)
[2018-05-22] MEDS: URSODIOL 300 MG PO SCH ×3 (09:19→18:05)
[2018-05-22] MEDS: POSACONAZOLE PO SCH ×3 (09:20→20:34)
[2018-05-22] MEDS ORDERED: Sodium Chloride 0.9% 1,000 ML IV SCH (10:30)
--- NOTE | 2018-05-22 10:32 | PCM.PN ---
- General Info Date of Service: 05/22/18 Subjective Update: Due to the patient's poor inability to communicate review of systems very limited, however when asked patient does have significant urge to void Functional Status: Reports: Pain Controlled, Tolerating Diet, Urinating (Nurses reported multiple incontinent episodes last night of urine) - Review of Systems General: Denies: Fever Pulmonary: Denies: Shortness of Breath, Cough Cardiovascular: Denies: Chest Pain, Edema Genitourinary: Reports: Pain, Incontinence, Retention Skin: Reports: Dryness Neurological: Reports: Confusion Psychiatric: Reports: Confusion. Denies: Agitation - Patient Data Vitals - Most Recent: Last Vital Signs Temp 98.3 F 05/22/18 06:10 Pulse 113 H 05/22/18 08:09 Resp 20 05/22/18 06:10 BP 143/95 H 05/22/18 08:09 Pulse Ox 100 05/22/18 06:10 Weight - Most Recent: 174 lb 5 oz I&O - Last 24 Hours: Intake & Output 05/21/18 05/22/18 05/22/18 22:59 06:59 14:59 Intake Total 1168 1062 Balance 1168 1062 Lab Results Last 24 Hours: Laboratory Results - last 24 hr 05/21/18 05/21/18 05/21/18 Range/Units 11:25 17:31 21:09 WBC (5.00-10.00) 10^3/uL RBC (4.50-6.00) 10^6/uL Hgb (13.0-17.0) g/dL Hct (40.0-52.0) % MCV (82.0-92.0) fL MCH (27.0-31.0) pg MCHC (32.0-36.0) g/dL RDW (11.5-14.5) % Plt Count (150-400) 10^3/uL MPV (7.4-10.4) fL Add Manual Diff Neutrophils % (Manual) (50-70) % Lymphocytes % (Manual) (20-40) % Monocytes % (Manual) (2-8) % Absolute Neutrophils Lymphocytes # (Manual) Monocytes # (Manual) Sodium (136-145) mmol/L Potassium (3.3-5.3) mmol/L Chloride (98-115) mmol/L Carbon Dioxide (21.0-32.0) mmol/L Anion Gap (5-15) mmol/L BUN (6-25) mg/dL Creatinine (0.51-1.17) mg/dL Est Cr Clr Drug Dosing mL/min Estimated GFR (MDRD) mL/min Glucose mg/dL POC Glucose 82 125 H 128 H (74-106) mg/dl Calcium (8.7-10.3) mg/dL Magnesium (1.8-2.4) mg/dL 05/22/18 05/22/18 05/22/18 Range/Units 06:49 07:20 07:20 WBC 8.92 (5.00-10.00) 10^3/uL RBC 3.05 L (4.50-6.00) 10^6/uL Hgb 11.7 L D (13.0-17.0) g/dL Hct 33.9 L (40.0-52.0) % MCV 111.1 H (82.0-92.0) fL MCH 38.4 H (27.0-31.0) pg MCHC 34.5 (32.0-36.0) g/dL RDW 14.4 (11.5-14.5) % Plt Count 194 (150-400) 10^3/uL MPV 9.5 (7.4-10.4) fL Add Manual Diff Yes Neutrophils % (Manual) 88 H (50-70) % Lymphocytes % (Manual) 10 L (20-40) % Monocytes % (Manual) 2 (2-8) % Absolute Neutrophils 7.8496 Lymphocytes # (Manual) 0.8920 Monocytes # (Manual) 0.1784 Sodium 139 (136-145) mmol/L Potassium 3.4 (3.3-5.3) mmol/L Chloride 106 (98-115) mmol/L Carbon Dioxide 21.7 (21.0-32.0) mmol/L Anion Gap 14.7 (5-15) mmol/L BUN 5 L (6-25) mg/dL Creatinine 0.52 (0.51-1.17) mg/dL Est Cr Clr Drug Dosing 145.09 mL/min Estimated GFR (MDRD) > 60 mL/min Glucose 136 mg/dL POC Glucose 130 H (74-106) mg/dl Calcium 7.7 L (8.7-10.3) mg/dL Magnesium 1.4 L (1.8-2.4) mg/dL Nikolay Results Last 24 Hours: Microbiology 05/20/18 07:30 Aerobic Blood Culture - Final Blood - Venous - Lab Draw Anaerobic Blood Culture - Final 05/20/18 03:55 Urine Culture - Final Urine, Segal Cath (Indwelling) Med Orders - Current: Current Medications Acetaminophen (Tylenol) 650 mg PO 0600,1200,1800,2300 [facility] Last Admin: 05/22/18 06:01 Dose: 650 mg Artificial Tears (Refresh Tears 0.5%) 0 ml EYEBOTH TID [facility] Last Admin: 05/22/18 08:11 Dose: 1 drop Ceftriaxone Sodium (Rocephin) 1 gm IVPUSH Q24H [facility] Last Admin: 05/22/18 06:00 Dose: 1 gm Enoxaparin Sodium (Lovenox) 40 mg SUBCUT Q24H [facility] Last Admin: 05/21/18 16:00 Dose: 40 mg Sodium Chloride (Normal Saline) 1,000 mls @ 125 mls/hr IV ASDIRECTED [facility] Last Admin: 05/22/18 02:33 Dose: 125 mls/hr Insulin Aspart (Novolog) 0 unit SUBCUT WITHMEALSANDBED [facility]; Protocol Last Admin: 05/22/18 08:24 Dose: Not Given Insulin Detemir (Levemir) 5 unit SUBCUT BEDTIME [facility] Last Admin: 05/21/18 21:24 Dose: 5 units Magnesium Oxide (Magnesium Oxide) 500 mg PO 5XDAY [facility] Last Admin: 05/22/18 08:09 Dose: 500 mg Metoprolol Tartrate (Lopressor) 12.5 mg PO BID [facility] Last Admin: 05/22/18 08:09 Dose: 12.5 mg Multivitamins/Minerals (Centrum) 1 tab PO DAILY [facility] Last Admin: 05/22/18 08:09 Dose: 1 tab Non-Formulary Medication (Atovaquone [Atovaquone]) 10 ml PO DAILY@1300 GRIS Omeprazole (Omeprazole) 20 mg PO ACBREAKFAST [facility] Last Admin: 05/22/18 08:03 Dose: 20 mg Ptom Noxafil ( Posaconazole) 200mg/5ml Susp 5 each PO TID [facility] Last Admin: 05/22/18 09:20 Dose: 5 each Ptom Ursodiol (300 Mg Capsule) 300 each PO TIDMEALS [facility] Last Admin: 05/22/18 09:19 Dose: 300 each Valacyclovir 1000 Mg (Tab*Pt Own Med*) 0 each PO TID [facility] Last Admin: 05/22/18 08:11 Dose: 1 each Tacrolimus 1 Mg Cap* (Pt Own Med*) 0 each PO BID [facility] Last Admin: 05/22/18 08:10 Dose: Not Given Potassium Chloride (Klor-Con) 20 meq PO DAILY@1300 [facility] Last Admin: 05/21/18 13:39 Dose: 20 meq Prednisone (Prednisone) 2.5 mg PO DAILY [facility] Last Admin: 05/22/18 08:10 Dose: 2.5 mg Quetiapine Fumarate (Seroquel) 12.5 mg PO BEDTIME [facility] Last Admin: 05/21/18 20:32 Dose: 12.5 mg Sodium Chloride (Saline Flush) 10 ml IV BID [facility] Last Admin: 05/22/18 08:12 Dose: Not Given Sucralfate (Carafate) 1 gm PO QIDACANDBED [facility] Last Admin: 05/22/18 06:04 Dose: 1 gm Tramadol HCl (Ultram) 50 mg PO QID PRN PRN Reason: Pain Tramadol HCl (Ultram) 50 mg PO BID@0800,1800 [facility] Last Admin: 05/22/18 08:30 Dose: Not Given Venlafaxine HCl (Effexor Xr) 75 mg PO DAILY [facility] Last Admin: 05/22/18 08:10 Dose: 75 mg Discontinued Medications Acetaminophen (Tylenol) 650 mg PO Q6H [facility] Last Admin: 05/21/18 06:11 Dose: Not Given Ceftriaxone Sodium (Rocephin) 1 gm IVPUSH ONETIME ONE Stop: 05/20/18 05:02 Last Admin: 05/20/18 05:09 Dose: 1 gm Sodium Chloride (Normal Saline) 1,000 mls @ 999 mls/hr IV .BOLUS ONE Stop: 05/20/18 04:59 Last Admin: 05/20/18 04:40 Dose: 999 mls/hr Magnesium Sulfate 2 gm/ Premix 50 mls @ 150 mls/hr IV ONETIME ONE Stop: 05/20/18 14:52 Last Admin: 05/20/18 15:20 Dose: Not Given Magnesium Sulfate 2 gm/ Premix 50 mls @ 50 mls/hr IV ONETIME ONE Stop: 05/20/18 16:59 Magnesium Sulfate 2 gm/ Premix 50 mls @ 50 mls/hr IV ONETIME ONE Stop: 05/20/18 16:58 Last Admin: 05/20/18 16:35 Dose: 50 mls/hr Sodium Chloride (Normal Saline) 1,000 mls @ 125 mls/hr IV ASDIRECTED [facility] Stop: 05/20/18 14:00 Last Admin: 05/20/18 05:40 Dose: 125 mls/hr Multivitamins/Minerals (Centrum) 1 tab PO DAILY@0300 [facility] Last Admin: 05/21/18 06:11 Dose: Not Given Omeprazole (First-Omeprazole) 0 each GTUBE ACBREAKFAST [facility] Last Admin: 05/20/18 12:48 Dose: Not Given Valacyclovir 1000 Mg (Tab*Pt Own Med*) 0 each PO ONETIME ONE Stop: 05/20/18 15:16 Last Admin: 05/20/18 15:37 Dose: 1,000 each Tacrolimus 1 Mg Cap* (Pt Own Med*) 0 each PO ONETIME ONE Stop: 05/20/18 15:16 Last Admin: 05/20/18 15:39 Dose: 1 each Sodium Chloride (Syrex Flush) 5 ml FLUSH Q8HR PRN PRN Reason: Keep Vein Open Sodium Chloride (Saline Flush) 10 ml FLUSH Q8HR [facility] Tacrolimus (Prograf) 1 mg PO BID [facility] Last Admin: 05/20/18 15:21 Dose: Not Given Tramadol HCl (Ultram) 50 mg PO BID [facility] Last Admin: 05/21/18 08:04 Dose: 50 mg Valacyclovir HCl (Valtrex) 1,000 mg PO TID [facility] Last Admin: 05/20/18 15:21 Dose: Not Given Venlafaxine HCl (Effexor Xr) 75 mg PO DAILY [facility] Last Admin: 05/21/18 13:53 Dose: Not Given Venlafaxine HCl (Effexor Xr) 75 mg PO DAILY [facility] - Exam Quality Assessment: No: Supplemental Oxygen General: Alert, Cooperative, No Acute Distress Neck: Supple Lungs: Clear to Auscultation, Normal Respiratory Effort Cardiovascular: Tachycardia GI/Abdominal Exam: No: Abnormal Bowel Sounds (Male) Exam: Other (Probable bladder--slightly distended on exam) Back Exam: No: CVA Tenderness (L), CVA Tenderness (R) Extremities: No Pedal Edema Skin: Dry Neurological: No New Focal Deficit Psy/Mental Status: Alert, Normal Mood. No: Agitated - Problem List Review Problem List Initiated/Reviewed/Updated: Yes - Plan Plan:: HPI: This is a 72 year old male who was brought to the ED via ambulance due to altered mental status and hypotension. The patient resides at [facility]. He had been seen on the morning on 05/19/18 in the ED as well as he had pulled his PEG tube out. The ED provider was able to replace this and sent him back to the [facility]. When the patient arrived a second time due to the above mentioned symptoms, it was again noted by the [facility] that he had pulled his PEG tube out. EMS noted systolic blood pressures in the 90s. The patient has a history of being somnolent and minimally communicative. The patient is typically followed by Dr. Castaneda in [place], [place] for his primary care. The patient has a history of MDS/Myeloproliferative disorder and is followed by oncology. He is status post non-myeloablative peripheral blood stem cell transplant at the [facility] on 02/23/17. His sister was the donor. Patient's notes he had to have his gallbladder removed in December 2017 and he has been deconditioned since that time. She notes that the segal catheter was placed after that surgery (December 2017). She states he has pulled the catheter out a few times, but it has always been put back in. She is unsure why. Other history, patient was recently discharged from [facility] for nutritional therapy, antibiotics, wound care and decreased mentation. She had underwent a laparoscopic cholecystectomy at the [facility] which was complicated after he developed right upper quadrant fluid/abscess collection which resulted in drain placement. He required antibiotics and the drain was eventually removed. 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 His flareup included him having terminal ileitis was placed on high dose prednisone along with chronic immunosuppressant medications. Due to high dose prednisone he became severely delirious far above his baseline however he improved greatly after he was weaned from the steroids. Pertinent ED workup: WBC 10.4 with left shift Hgb 11.7 (baseline) Lactic acid 1.0 Calcium 7.7 corrects to 9.6 Alk phos 436 (down from 571 a couple months ago) UA revealed positive nitrites & many bacteria Head CT negative Chest x-ray negative Abdominal x-ray negative for acute pathology EKG-sinus tachycardia with premature supraventricular complexes (changed from previous EKG (2016) that noted NSR) Troponin 0.05 Given 1 liter of NS and started on IV rocephin Primary Impression/Plan: Update today. Although nurses reported multiple spontaneous voiding episodes during the night after catheter was removed, patient tachycardia today with palpable bladder, suspected urinary retention--subsequent bladder scan demonstrated 750 mL retention. UTI. Complicated, likely colonization and catheter associated due to indwelling Segal. Segal was removed yesterday. Continue rocephin. Culture showing gram- negative and gram-positive rods. ESBL a concern Aerobic blood culture positive for gram-positive cocci. Pancytopenia, likely due to recent transplant and immunosuppressive therapy, monitor levels carefully History of UAR; due to catheter-associated infection and concern for ESBL his Segal catheter was removed yesterday. Patient was spontaneously voiding throughout the night ,however morning on exam he was quite tachycardic with palpable bladder on exam, Subsequent bladder scan showed 750 mL urinary retention. Straight catheter today and continue trial without catheter however doubtful if patient will empty bladder on own--Flomax was held on admission will restart this today. monitor for retention and need for replacement of indwelling Segal catheter. Dehydration, this is improved, will decrease rate by 50%. Delirium, chronic, Now at baseline, afebrile, PEG tube displacement, Patient has pulled out the PEG tube x2, Will hold off on re-insertion as per [facility] report patient has been eating orally and only using the tube for a few medications for the past week. agreeable to leave tube out. Will continue to monitor site. Daily weights, monitor nutritional status Hypomagnesemia. Mild, magnesium level 1.4. Continue with magnesium supplementation orally. PICC line was removed yesterday 2/2 surrounding skin break down with sepsis/infection concerns, cultured catheter tip, monitor magnesium carefully. Monitor calcium and potassium carefully. Hopefully patient can maintain levels orally Buttock abrasions, POA. Barrier cream applied. May consider GET ointment. Secondary Impression/Plan: History of atrial fib/flutter, s/p ablation. History of viral overload & EBV. Question if this is the reason for valtrex use. HLD, ROXANE MDS/Myeloproliferative disorder. Patient is followed by Dr. Anne, oncologist at [facility]. He was recently seen by her on 05/11/18. She had decreased his lopressor at that visit as he was hypotensive. senior living note states Dr. Anne was contacted (05/19/18) about a elevated tacrolimus level. She ordered for it to be held yesterday and resume normal dose on Monday; level drawn 05/21-- pending. Will proceed with oncology's instructions. 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 Chronic anemia, stable. Hgb 11.7 GERD. On PPI. Type 2 diabetes mellitus. Accuchecks QID. Levemir 5 units nightly. Will provide low dose sliding scale novolog. Osteoarthritis of multiple joints. Continue tylenol and tramadol. DVT prophylaxis. Score of 6. Lovenox daily. Monitor platelets Overall plan: Straight catheter x1 repeat TWOC, restart Flomax, decrease IV fluids, monitor for retention and the need for replacement, Carefully monitor patient's oral intake status. Will determine if patient can maintain magnesium levels orally, if not may need PICC line.
[2018-05-22] MEDS: Potassium Chloride 20 MEQ Packet PO SCH (12:04)
[2018-05-22] MEDS: Enoxaparin 40 MG/0.4 ML Syringe SUBCUT SCH (14:07)
[2018-05-22] MEDS: ATOVAQUONE 750 MG/5 ML PO SCH (16:23)
[2018-05-22] MEDS: Tamsulosin 0.4 MG Cap.ER PO SCH (18:04)
[2018-05-22] MEDS: valACYclovir 1,000 MG Tab PO SCH (20:29)
[2018-05-22] MEDS: QUEtiapine 25 MG Tab PO SCH (20:29)
[2018-05-22] MEDS: Insulin Detemir 100 Units/ML 3 ML Pen SUBCUT SCH (21:22)
[2018-05-23] MEDS: cefTRIAXone 1 GM Vial IVPUSH SCH (05:35)
[2018-05-23] MEDS: Sucralfate 1 GM Tab PO SCH ×4 (06:26→23:49)
[2018-05-23] MEDS: Acetaminophen 325 MG Tab PO SCH ×4 (06:26→23:49)
[2018-05-23] MEDS: Omeprazole 20 MG Cap.CR PO SCH (06:30)
[2018-05-23 07:45] LABS: CHLORIDE,CL 107 mmol/L (98-115); SODIUM,NA 137 mmol/L (136-145)
[2018-05-23] MEDS: Magnesium Oxide 500 MG Tab PO SCH ×6 (07:52→23:46)
[2018-05-23] MEDS: Insulin Aspart 100 Units/ML 3 ML Pen SUBCUT SCH ×4 (07:52→23:49)
[2018-05-23] MEDS: URSODIOL 300 MG PO SCH ×3 (07:54→18:35)
[2018-05-23] MEDS: traMADol 50 MG Tab PO SCH ×2 (07:56→18:36)
[2018-05-23] MEDS: predniSONE 5 MG Tab PO SCH (08:39)
[2018-05-23] MEDS: Venlafaxine 37.5 MG Cap.ER PO SCH ×2 (08:39→11:51)
[2018-05-23] MEDS: TACROLIMUS 1 MG PO SCH ×2 (08:40→23:48)
[2018-05-23] MEDS: Sodium Chloride 0.9% 10 ML Syringe IV SCH ×2 (08:40→23:48)
[2018-05-23] MEDS: valACYclovir 1,000 MG Tab PO SCH ×5 (08:41→23:49)
[2018-05-23] MEDS: POSACONAZOLE PO SCH ×3 (08:42→23:48)
[2018-05-23] MEDS: Metoprolol Tartrate 25 MG Tab PO SCH ×2 (08:43→23:48)
--- NOTE | 2018-05-23 10:46 | PCM.PN ---
- General Info Date of Service: 05/23/18 Subjective Update: Due to the patient's poor inability to communicate review of systems very limited, however when asked patient does have significant urge to void Functional Status: Reports: Pain Controlled, Tolerating Diet, Urinating - Review of Systems Cardiovascular: Denies: Chest Pain, Edema Gastrointestinal: Denies: Abdominal Pain, Decreased Appetite Genitourinary: Reports: Incontinence Neurological: Reports: Confusion Psychiatric: Reports: Confusion - Patient Data Vitals - Most Recent: Last Vital Signs Temp 98.6 F 05/23/18 06:20 Pulse 100 05/23/18 08:43 Resp 18 05/23/18 06:20 BP 126/84 05/23/18 08:43 Pulse Ox 96 05/23/18 06:20 Weight - Most Recent: 180 lb 3.2 oz I&O - Last 24 Hours: Intake & Output 05/22/18 05/23/18 05/23/18 22:59 06:59 14:59 Intake Total 680 633 Balance 680 633 Lab Results Last 24 Hours: Laboratory Results - last 24 hr 05/22/18 05/22/18 05/22/18 Range/Units 11:47 17:11 21:20 WBC (5.00-10.00) 10^3/uL RBC (4.50-6.00) 10^6/uL Hgb (13.0-17.0) g/dL Hct (40.0-52.0) % MCV (82.0-92.0) fL MCH (27.0-31.0) pg MCHC (32.0-36.0) g/dL RDW (11.5-14.5) % Plt Count (150-400) 10^3/uL MPV (7.4-10.4) fL Immature Gran % (Auto) (0.0-5.0) % Neut % (Auto) (50.0-70.0) % Lymph % (Auto) (20.0-40.0) % Woodford % (Auto) (2.0-8.0) % Eos % (Auto) (1.0-3.0) % Baso % (Auto) (0.0-1.0) % Immature Gran # (Auto) (0.00-0.50) 10^3/uL Neut # (Auto) (2.50-7.00) 10^3/uL Lymph # (Auto) (1.00-4.00) 10^3/uL Woodford # (Auto) (0.10-0.80) 10^3/uL Eos # (Auto) (0.10-0.30) 10^3/uL Baso # (Auto) (0.00-0.10) 10^3/uL Macrocytosis Sodium (136-145) mmol/L Potassium (3.3-5.3) mmol/L Chloride (98-115) mmol/L Carbon Dioxide (21.0-32.0) mmol/L Anion Gap (5-15) mmol/L BUN (6-25) mg/dL Creatinine (0.51-1.17) mg/dL Est Cr Clr Drug Dosing mL/min Estimated GFR (MDRD) mL/min Glucose mg/dL POC Glucose 177 H 119 H 129 H (74-106) mg/dl Calcium (8.7-10.3) mg/dL Magnesium (1.8-2.4) mg/dL 05/23/18 05/23/18 05/23/18 Range/Units 07:15 07:15 07:48 WBC 7.27 (5.00-10.00) 10^3/uL RBC 2.75 L (4.50-6.00) 10^6/uL Hgb 10.5 L (13.0-17.0) g/dL Hct 31.0 L (40.0-52.0) % MCV 112.7 H (82.0-92.0) fL MCH 38.2 H (27.0-31.0) pg MCHC 33.9 (32.0-36.0) g/dL RDW 14.5 (11.5-14.5) % Plt Count 160 (150-400) 10^3/uL MPV 9.4 (7.4-10.4) fL Immature Gran % (Auto) 0.6 (0.0-5.0) % Neut % (Auto) 76.4 H (50.0-70.0) % Lymph % (Auto) 13.8 L (20.0-40.0) % Woodford % (Auto) 8.3 H (2.0-8.0) % Eos % (Auto) 0.6 L (1.0-3.0) % Baso % (Auto) 0.3 (0.0-1.0) % Immature Gran # (Auto) 0.04 (0.00-0.50) 10^3/uL Neut # (Auto) 5.57 (2.50-7.00) 10^3/uL Lymph # (Auto) 1.00 (1.00-4.00) 10^3/uL Woodford # (Auto) 0.60 (0.10-0.80) 10^3/uL Eos # (Auto) 0.04 L (0.10-0.30) 10^3/uL Baso # (Auto) 0.02 (0.00-0.10) 10^3/uL Macrocytosis Moderate Sodium 137 (136-145) mmol/L Potassium 3.1 L (3.3-5.3) mmol/L Chloride 107 (98-115) mmol/L Carbon Dioxide 23.1 (21.0-32.0) mmol/L Anion Gap 10.0 (5-15) mmol/L BUN 4 L (6-25) mg/dL Creatinine 0.49 L (0.51-1.17) mg/dL Est Cr Clr Drug Dosing 153.97 mL/min Estimated GFR (MDRD) > 60 mL/min Glucose 121 mg/dL POC Glucose 133 H (74-106) mg/dl Calcium 7.5 L (8.7-10.3) mg/dL Magnesium 1.3 L (1.8-2.4) mg/dL Nikolay Results Last 24 Hours: Microbiology 05/20/18 03:55 Bacterial ID and Susceptibility - Preliminary Urine - Segal Catheter Gram Negative Rods 05/20/18 06:20 Miscellaneous Reference Culture - Preliminary Wound - Abdomen Staphylococcus Aureus Gram Stain - Final 05/21/18 12:45 Gram Stain - Final Wound - Picc Line 05/20/18 10:30 Miscellaneous Reference Culture - Preliminary Wound - Arm, Left Staphylococcus Aureus Gram Stain - Final 05/20/18 06:45 Bacterial Identification - Preliminary Blood - Venous Gram Positive Cocci 05/20/18 06:10 Gram Stain - Final Wound - Arm, Left 05/20/18 06:00 Gram Stain - Final Wound - Arm, Right 05/20/18 07:30 Aerobic Blood Culture - Final Blood - Venous - Lab Draw Anaerobic Blood Culture - Final Med Orders - Current: Current Medications Acetaminophen (Tylenol) 650 mg PO 0600,1200,1800,2300 [facility] Last Admin: 05/23/18 06:26 Dose: 650 mg Artificial Tears (Refresh Tears 0.5%) 0 ml EYEBOTH TID [facility] Last Admin: 05/22/18 20:29 Dose: 1 drop Ceftriaxone Sodium (Rocephin) 1 gm IVPUSH Q24H [facility] Last Admin: 05/23/18 05:35 Dose: 1 gm Enoxaparin Sodium (Lovenox) 40 mg SUBCUT Q24H [facility] Last Admin: 05/22/18 14:07 Dose: 40 mg Sodium Chloride (Normal Saline) 1,000 mls @ 65 mls/hr IV ASDIRECTED [facility] Last Admin: 05/22/18 21:27 Dose: 65 mls/hr Insulin Aspart (Novolog) 0 unit SUBCUT WITHMEALSANDBED [facility]; Protocol Last Admin: 05/23/18 07:52 Dose: Not Given Insulin Detemir (Levemir) 5 unit SUBCUT BEDTIME [facility] Last Admin: 05/22/18 21:22 Dose: 5 units Magnesium Oxide (Magnesium Oxide) 500 mg PO 5XDAY [facility] Last Admin: 05/23/18 07:52 Dose: 500 mg Metoprolol Tartrate (Lopressor) 12.5 mg PO BID [facility] Last Admin: 05/23/18 08:43 Dose: 12.5 mg Multi-Ingred Cream/Lotion/Oil/Oint (Kmed) 0 ml TOP BID PRN PRN Reason: skin degradation Multivitamins/Minerals (Centrum) 1 tab PO DAILY [facility] Last Admin: 05/22/18 08:09 Dose: 1 tab Omeprazole (Omeprazole) 20 mg PO ACBREAKFAST [facility] Last Admin: 05/23/18 06:30 Dose: 20 mg Ptom Noxafil ( Posaconazole) 200mg/5ml Susp 5 each PO TID [facility] Last Admin: 05/23/18 08:42 Dose: 5 each Ptom Ursodiol (300 Mg Capsule) 300 each PO TIDMEALS [facility] Last Admin: 05/23/18 07:54 Dose: 300 each Tacrolimus 1 Mg Cap* (Pt Own Med*) 0 each PO BID [facility] Last Admin: 05/23/18 08:40 Dose: 1 each Ptom Atovaquone (750mg/5ml Suspension) 10 each PO DAILY@1300 [facility] Last Admin: 05/22/18 16:23 Dose: 10 each Potassium Chloride (Klor-Con) 20 meq PO DAILY@1300 [facility] Last Admin: 05/22/18 12:04 Dose: 20 meq Prednisone (Prednisone) 2.5 mg PO DAILY [facility] Last Admin: 05/23/18 08:39 Dose: 2.5 mg Quetiapine Fumarate (Seroquel) 12.5 mg PO BEDTIME [facility] Last Admin: 05/22/18 20:29 Dose: 12.5 mg Sodium Chloride (Saline Flush) 10 ml IV BID [facility] Last Admin: 05/23/18 08:40 Dose: Not Given Sucralfate (Carafate) 1 gm PO QIDACANDBED [facility] Last Admin: 05/23/18 06:26 Dose: 1 gm Tamsulosin HCl (Flomax) 0.8 mg PO DAILY@1800 [facility] Last Admin: 05/22/18 18:04 Dose: 0.8 mg Tramadol HCl (Ultram) 50 mg PO QID PRN PRN Reason: Pain Tramadol HCl (Ultram) 50 mg PO BID@0800,1800 [facility] Last Admin: 05/23/18 07:56 Dose: 50 mg Valacyclovir HCl (Valtrex) 1,000 mg PO TID [facility] Last Admin: 05/22/18 20:29 Dose: 1,000 mg Venlafaxine HCl (Effexor Xr) 75 mg PO DAILY [facility] Last Admin: 05/22/18 08:10 Dose: 75 mg Discontinued Medications Acetaminophen (Tylenol) 650 mg PO Q6H [facility] Last Admin: 05/21/18 06:11 Dose: Not Given Ceftriaxone Sodium (Rocephin) 1 gm IVPUSH ONETIME ONE Stop: 05/20/18 05:02 Last Admin: 05/20/18 05:09 Dose: 1 gm Sodium Chloride (Normal Saline) 1,000 mls @ 999 mls/hr IV .BOLUS ONE Stop: 05/20/18 04:59 Last Admin: 05/20/18 04:40 Dose: 999 mls/hr Sodium Chloride (Normal Saline) 1,000 mls @ 125 mls/hr IV ASDIRECTED [facility] Last Admin: 05/22/18 02:33 Dose: 125 mls/hr Magnesium Sulfate 2 gm/ Premix 50 mls @ 150 mls/hr IV ONETIME ONE Stop: 05/20/18 14:52 Last Admin: 05/20/18 15:20 Dose: Not Given Magnesium Sulfate 2 gm/ Premix 50 mls @ 50 mls/hr IV ONETIME ONE Stop: 05/20/18 16:59 Magnesium Sulfate 2 gm/ Premix 50 mls @ 50 mls/hr IV ONETIME ONE Stop: 05/20/18 16:58 Last Admin: 05/20/18 16:35 Dose: 50 mls/hr Sodium Chloride (Normal Saline) 1,000 mls @ 125 mls/hr IV ASDIRECTED [facility] Stop: 05/20/18 14:00 Last Admin: 05/20/18 05:40 Dose: 125 mls/hr Multivitamins/Minerals (Centrum) 1 tab PO DAILY@0300 [facility] Last Admin: 05/21/18 06:11 Dose: Not Given Omeprazole (First-Omeprazole) 0 each GTUBE ACBREAKFAST [facility] Last Admin: 05/20/18 12:48 Dose: Not Given Ptom Atovaquone (750mg/5ml Suspension) 10 each PO DAILY@1300 [facility] Valacyclovir 1000 Mg (Tab*Pt Own Med*) 0 each PO TID [facility] Last Admin: 05/22/18 14:07 Dose: 1 each Valacyclovir 1000 Mg (Tab*Pt Own Med*) 0 each PO ONETIME ONE Stop: 05/20/18 15:16 Last Admin: 05/20/18 15:37 Dose: 1,000 each Tacrolimus 1 Mg Cap* (Pt Own Med*) 0 each PO ONETIME ONE Stop: 05/20/18 15:16 Last Admin: 05/20/18 15:39 Dose: 1 each Sodium Chloride (Syrex Flush) 5 ml FLUSH Q8HR PRN PRN Reason: Keep Vein Open Sodium Chloride (Saline Flush) 10 ml FLUSH Q8HR [facility] Tacrolimus (Prograf) 1 mg PO BID [facility] Last Admin: 05/20/18 15:21 Dose: Not Given Tramadol HCl (Ultram) 50 mg PO BID [facility] Last Admin: 05/21/18 08:04 Dose: 50 mg Valacyclovir HCl (Valtrex) 1,000 mg PO TID [facility] Last Admin: 05/20/18 15:21 Dose: Not Given Venlafaxine HCl (Effexor Xr) 75 mg PO DAILY [facility] Last Admin: 05/21/18 13:53 Dose: Not Given Venlafaxine HCl (Effexor Xr) 75 mg PO DAILY [facility] - Exam Quality Assessment: No: Supplemental Oxygen General: Alert, Cooperative, No Acute Distress. No: Oriented Neck: Supple Lungs: Clear to Auscultation, Normal Respiratory Effort Cardiovascular: Regular Rate, Regular Rhythm GI/Abdominal Exam: Soft (Male) Exam: Deferred Back Exam: No: CVA Tenderness (L), CVA Tenderness (R) Extremities: No: Pedal Edema Skin: Other (Nurses reporting abrasion coccyx) Neurological: Normal Tone, Sensation Intact. No: Normal Speech Psy/Mental Status: Alert, Labile Mood - Problem List Review Problem List Initiated/Reviewed/Updated: Yes - My Orders Last 24 Hours: My Active Orders 05/22/18 10:30 Sodium Chloride 0.9% [Normal Saline] 1,000 ml IV ASDIRECTED 05/22/18 12:23 Urinary Catheter Insertion [Insert Urinary Catheter] [OM.PC] Q24H 05/22/18 12:25 Bladder Scan [RC] ASDIRECTED 05/22/18 18:00 Tamsulosin [Flomax] 0.8 mg PO DAILY@1800 05/23/18 11:00 Zinc Oxide [Kmed] 0 ml TOP BID PRN - Plan Plan:: HPI: This is a 72 year old male who was brought to the ED via ambulance due to altered mental status and hypotension. The patient resides at [facility]. He had been seen on the morning on 05/19/18 in the ED as well as he had pulled his PEG tube out. The ED provider was able to replace this and sent him back to the detention. When the patient arrived a second time due to the above mentioned symptoms, it was again noted by the detention that he had pulled his PEG tube out. EMS noted systolic blood pressures in the 90s. The patient has a history of being somnolent and minimally communicative. The patient is typically followed by Dr. Castaneda in [place], [place] for his primary care. The patient has a history of MDS/Myeloproliferative disorder and is followed by oncology. He is status post non-myeloablative peripheral blood stem cell transplant at the [facility] on 02/23/17. His sister was the donor. Patient's notes he had to have his gallbladder removed in December 2017 and he has been deconditioned since that time. She notes that the segal catheter was placed after that surgery (December 2017). She states he has pulled the catheter out a few times, but it has always been put back in. She is unsure why. Other history, patient was recently discharged from [facility] for nutritional therapy, antibiotics, wound care and decreased mentation. She had underwent a laparoscopic cholecystectomy at the [facility] which was complicated after he developed right upper quadrant fluid/abscess collection which resulted in drain placement. He required antibiotics and the drain was eventually removed. 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 His flareup included him having terminal ileitis was placed on high dose prednisone along with chronic immunosuppressant medications. Due to high dose prednisone he became severely delirious far above his baseline however he improved greatly after he was weaned from the steroids. Pertinent ED workup: WBC 10.4 with left shift Hgb 11.7 (baseline) Lactic acid 1.0 Calcium 7.7 corrects to 9.6 Alk phos 436 (down from 571 a couple months ago) UA revealed positive nitrites & many bacteria Head CT negative Chest x-ray negative Abdominal x-ray negative for acute pathology EKG-sinus tachycardia with premature supraventricular complexes (changed from previous EKG (2015) that noted NSR) Troponin 0.05 Given 1 liter of NS and started on IV rocephin Primary Impression/Plan: Update today. Although nurses reported multiple spontaneous voiding yesterday he did have 750 mL retention, straight catheter was performed he has been voiding spontaneously since. Flomax was restarted yesterday. Will assess postvoid residual today to determine strategy. UTI. Complicated, likely colonization and catheter associated due to indwelling Segal. Segal was discontinued. Continue rocephin. Culture showing gram-negative and gram-positive rods. ESBL a concern Aerobic blood culture positive for gram- positive cocci. Sensitivity reports remain pending. Pancytopenia, likely due to recent transplant and immunosuppressive therapy, monitor levels carefully History of UAR; due to catheter-associated infection and concern for ESBL his Segal catheter was removed. The update above. Dehydration, this is improved, rate was decreased. Delirium, chronic, Now at baseline, afebrile, PEG tube displacement, Patient has pulled out the PEG tube x2, Will hold off on re-insertion as per detention report patient has been eating orally and only using the tube for a few medications for the past week. agreeable to leave tube out. Will continue to monitor site. Daily weights, monitor nutritional status Hypomagnesemia. Mild, magnesium level 1.3. Continue with magnesium supplementation orally. PICC line was removed 2/2 surrounding skin break down with sepsis/infection concerns, cultured catheter tip did demonstrate gram- positive cocci. Doubtful patient can maintain magnesium levels orally. Will consult anesthesia for PICC line replacement. Monitor calcium and potassium carefully. Buttock abrasions, POA. Barrier cream applied. GET ointment. Secondary Impression/Plan: History of atrial fib/flutter, s/p ablation. History of viral overload & EBV. Question if this is the reason for valtrex use. HLD, ROXANE MDS/Myeloproliferative disorder. Patient is followed by Dr. Anne, oncologist at [facility]. He was recently seen by her on 05/11/18. She had decreased his lopressor at that visit as he was hypotensive. [facility] note states Dr. Anne was contacted (05/19/18) about a elevated tacrolimus level. She ordered for it to be held yesterday and resume normal dose on Monday; level drawn 05/21-- pending. Will proceed with oncology's instructions. 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 Chronic anemia, stable. Hgb 11.7 GERD. On PPI. Type 2 diabetes mellitus. Accuchecks QID. Levemir 5 units nightly. Will provide low dose sliding scale novolog. Osteoarthritis of multiple joints. Continue tylenol and tramadol. DVT prophylaxis. Score of 6. Lovenox daily. Monitor platelets Overall plan: Assess postvoid residual. Continue Flomax. Reinsert PICC line. Replace potassium. Magnesium sulfate 2 g 4 hours today IV.
[2018-05-23] MEDS ORDERED: Magnesium Sulfate/Water 2 GM in Premix Bag 1 BAG IV ONE (10:51)
[2018-05-23] MEDS: Carboxymethylcellulose Sodium 0.5% Ophth Soln 15 ML Bottle EYEBOTH SCH ×3 (11:51→20:53)
[2018-05-23] MEDS: Multivitamins with Minerals/Iron/Folic Acid/Lycopene Tab PO SCH (11:51)
[2018-05-23] MEDS ORDERED: ATOVAQUONE 750 MG/5 ML PO SCH (13:00)
[2018-05-23] MEDS: ATOVAQUONE 750 MG/5 ML PO SCH (13:57)
[2018-05-23] MEDS: Enoxaparin 40 MG/0.4 ML Syringe SUBCUT SCH (14:00)
[2018-05-23] MEDS: Potassium Chloride 20 MEQ Packet PO SCH (14:03)
[2018-05-23] MEDS: Potassium Bicarbonate/Potassium Chloride 25 MEQ Tab.Eff PO SCH (14:03)
[2018-05-23] MEDS: D5 1/2 NS w/ 40 mEq/L KCl 1,000 ML IV SCH (14:37)
[2018-05-23] MEDS: Tamsulosin 0.4 MG Cap.ER PO SCH (18:34)
[2018-05-23] MEDS: Zinc Oxide/Eucerin/Nystatin/Karaya 237 ML JAR TOP PRN (18:36)
[2018-05-23] MEDS: Insulin Detemir 100 Units/ML 3 ML Pen SUBCUT SCH (23:46)
[2018-05-23] MEDS: QUEtiapine 25 MG Tab PO SCH (23:48)
[2018-05-24] MEDS: traMADol 50 MG Tab PO PRN (01:59)
[2018-05-24] MEDS: cefTRIAXone 1 GM Vial IVPUSH SCH (05:45)
[2018-05-24] MEDS: Acetaminophen 325 MG Tab PO SCH ×4 (07:13→22:35)
[2018-05-24] MEDS: Sucralfate 1 GM Tab PO SCH ×5 (07:45→21:40)
[2018-05-24] MEDS: Omeprazole 20 MG Cap.CR PO SCH (07:45)
[2018-05-24] MEDS: Insulin Aspart 100 Units/ML 3 ML Pen SUBCUT SCH ×4 (07:46→21:36)
[2018-05-24] MEDS: Magnesium Oxide 500 MG Tab PO SCH ×5 (08:06→20:21)
[2018-05-24] MEDS: valACYclovir 1,000 MG Tab PO SCH ×3 (08:06→20:20)
[2018-05-24] MEDS: Venlafaxine 37.5 MG Cap.ER PO SCH (08:06)
[2018-05-24] MEDS: Metoprolol Tartrate 25 MG Tab PO SCH ×2 (08:07→20:20)
[2018-05-24] MEDS: predniSONE 5 MG Tab PO SCH (08:07)
[2018-05-24] MEDS: TACROLIMUS 1 MG PO SCH ×2 (08:10→20:20)
[2018-05-24] MEDS: URSODIOL 300 MG PO SCH ×3 (08:10→18:17)
[2018-05-24] MEDS: Sodium Chloride 0.9% 10 ML Syringe IV SCH ×2 (08:11→20:28)
[2018-05-24] MEDS: Carboxymethylcellulose Sodium 0.5% Ophth Soln 15 ML Bottle EYEBOTH SCH ×3 (08:11→20:19)
[2018-05-24] MEDS: Multivitamins with Minerals/Iron/Folic Acid/Lycopene Tab PO SCH (08:11)
[2018-05-24] MEDS: POSACONAZOLE PO SCH ×3 (08:11→20:21)
[2018-05-24 08:15] LABS: ANION GAP 11.9 mmol/L (5-15); CHLORIDE,CL 104 mmol/L (98-115); SODIUM,NA 136 mmol/L (136-145)
[2018-05-24] MEDS: Potassium Bicarbonate/Potassium Chloride 25 MEQ Tab.Eff PO SCH (08:21)
[2018-05-24] MEDS: traMADol 50 MG Tab PO SCH ×2 (08:21→18:21)
--- NOTE | 2018-05-24 10:09 | PCM.PN ---
- General Info Date of Service: 05/24/18 Subjective Update: Due to the patient's poor inability to communicate review of systems very limited, however when asked patient does have significant urge to void Functional Status: Reports: Pain Controlled, Tolerating Diet, New Symptoms ( Nurses reporting "creamy" discharge from straight catheter) - Review of Systems General: Reports: No Symptoms Pulmonary: Denies: Shortness of Breath, Cough, Sputum, Wheezing Cardiovascular: Reports: No Symptoms Gastrointestinal: Reports: Decreased Appetite. Denies: Abdominal Pain, Diarrhea , Difficulty Swallowing, Nausea Genitourinary: Reports: Retention Neurological: Reports: Confusion - Patient Data Vitals - Most Recent: Last Vital Signs Temp 98.8 F 05/24/18 06:55 Pulse 98 05/24/18 08:07 Resp 16 05/24/18 06:55 BP 125/78 05/24/18 08:07 Pulse Ox 97 05/24/18 06:55 Weight - Most Recent: 136 lb 2 oz I&O - Last 24 Hours: Intake & Output 05/23/18 05/24/18 05/24/18 22:59 06:59 14:59 Intake Total 660 545 Output Total 1275 20 Balance -615 525 Lab Results Last 24 Hours: Laboratory Results - last 24 hr 05/23/18 05/23/18 05/23/18 Range/Units 11:55 17:57 20:33 Sodium (136-145) mmol/L Potassium (3.3-5.3) mmol/L Chloride (98-115) mmol/L Carbon Dioxide (21.0-32.0) mmol/L Anion Gap (5-15) mmol/L BUN (6-25) mg/dL Creatinine (0.51-1.17) mg/dL Est Cr Clr Drug Dosing mL/min Estimated GFR (MDRD) mL/min Glucose mg/dL POC Glucose 129 H 116 H 113 H (74-106) mg/dl Calcium (8.7-10.3) mg/dL Magnesium (1.8-2.4) mg/dL 05/24/18 05/24/18 05/24/18 Range/Units 06:51 07:48 07:48 Sodium 136 (136-145) mmol/L Potassium 3.5 (3.3-5.3) mmol/L Chloride 104 (98-115) mmol/L Carbon Dioxide 23.6 (21.0-32.0) mmol/L Anion Gap 11.9 (5-15) mmol/L BUN 4 L (6-25) mg/dL Creatinine 0.47 L (0.51-1.17) mg/dL Est Cr Clr Drug Dosing 127.72 mL/min Estimated GFR (MDRD) > 60 mL/min Glucose 128 mg/dL POC Glucose 146 H (74-106) mg/dl Calcium 7.6 L (8.7-10.3) mg/dL Magnesium 1.6 L (1.8-2.4) mg/dL Nikolay Results Last 24 Hours: Microbiology 05/21/18 12:45 Miscellaneous Reference Culture - Preliminary Wound - Picc Line Enterococcus Species Gram Negative Rods Gram Stain - Final 05/20/18 06:45 Bacterial Identification - Preliminary Blood - Venous Enterococcus Species 05/20/18 06:10 Miscellaneous Reference Culture - Preliminary Wound - Arm, Left Staphylococcus Aureus Gram Negative Rods Enterococcus Species Gram Stain - Final 05/20/18 03:55 Bacterial ID and Susceptibility - Preliminary Urine - Segal Catheter Gram Negative Rods 05/20/18 06:20 Miscellaneous Reference Culture - Preliminary Wound - Abdomen Staphylococcus Aureus Gram Stain - Final 05/20/18 10:30 Miscellaneous Reference Culture - Preliminary Wound - Arm, Left Staphylococcus Aureus Gram Stain - Final Med Orders - Current: Current Medications Acetaminophen (Tylenol) 650 mg PO 0600,1200,1800,2300 [facility] Last Admin: 05/24/18 07:13 Dose: Not Given Artificial Tears (Refresh Tears 0.5%) 0 ml EYEBOTH TID [facility] Last Admin: 05/24/18 08:11 Dose: Not Given Ceftriaxone Sodium (Rocephin) 1 gm IVPUSH Q24H [facility] Last Admin: 05/24/18 05:45 Dose: 1 gm Enoxaparin Sodium (Lovenox) 40 mg SUBCUT Q24H [facility] Last Admin: 05/23/18 14:00 Dose: 40 mg Potassium Chloride/Dextrose/Sod Cl (D5 1/2 Ns W/ 40 Meq/L Kcl) 1,000 mls @ 50 mls/hr IV ASDIRECTED [facility] Last Admin: 05/23/18 14:37 Dose: 50 mls/hr Insulin Aspart (Novolog) 0 unit SUBCUT WITHMEALSANDBED [facility]; Protocol Last Admin: 05/24/18 07:46 Dose: Not Given Insulin Detemir (Levemir) 5 unit SUBCUT BEDTIME [facility] Last Admin: 05/23/18 23:46 Dose: Not Given Magnesium Oxide (Magnesium Oxide) 500 mg PO 5XDAY [facility] Last Admin: 05/24/18 08:06 Dose: 500 mg Metoprolol Tartrate (Lopressor) 12.5 mg PO BID [facility] Last Admin: 05/24/18 08:07 Dose: 12.5 mg Multi-Ingred Cream/Lotion/Oil/Oint (Kmed) 0 ml TOP BID PRN PRN Reason: skin degradation Last Admin: 05/23/18 18:36 Dose: 1 applic Multivitamins/Minerals (Centrum) 1 tab PO DAILY [facility] Last Admin: 05/24/18 08:11 Dose: Not Given Omeprazole (Omeprazole) 20 mg PO ACBREAKFAST [facility] Last Admin: 05/24/18 07:45 Dose: Not Given Ptom Noxafil ( Posaconazole) 200mg/5ml Susp 5 each PO TID [facility] Last Admin: 05/24/18 08:11 Dose: 5 each Ptom Ursodiol (300 Mg Capsule) 300 each PO TIDMEALS [facility] Last Admin: 05/24/18 08:10 Dose: 300 each Tacrolimus 1 Mg Cap* (Pt Own Med*) 0 each PO BID [facility] Last Admin: 05/24/18 08:10 Dose: 1 each Ptom Atovaquone (750mg/5ml Suspension) 10 each PO DAILY@1300 [facility] Last Admin: 05/23/18 13:57 Dose: Not Given Potassium Bicarb/Potassium Chloride (Potassium Chloride, Effervescent) 25 meq PO DAILY [facility] Last Admin: 05/24/18 08:21 Dose: Not Given Potassium Chloride (Klor-Con) 20 meq PO DAILY@1300 [facility] Last Admin: 05/23/18 14:03 Dose: Not Given Prednisone (Prednisone) 2.5 mg PO DAILY [facility] Last Admin: 05/24/18 08:07 Dose: 2.5 mg Quetiapine Fumarate (Seroquel) 12.5 mg PO BEDTIME [facility] Last Admin: 05/23/18 23:48 Dose: Not Given Sodium Chloride (Saline Flush) 10 ml IV BID [facility] Last Admin: 05/24/18 08:11 Dose: 10 ml Sucralfate (Carafate) 1 gm PO QIDACANDBED [facility] Last Admin: 05/24/18 07:45 Dose: Not Given Tamsulosin HCl (Flomax) 0.8 mg PO DAILY@1800 [facility] Last Admin: 05/23/18 18:34 Dose: Not Given Tramadol HCl (Ultram) 50 mg PO QID PRN PRN Reason: Pain Last Admin: 05/24/18 01:59 Dose: 50 mg Tramadol HCl (Ultram) 50 mg PO BID@0800,1800 [facility] Last Admin: 05/24/18 08:21 Dose: Not Given Valacyclovir HCl (Valtrex) 1,000 mg PO TID [facility] Last Admin: 05/24/18 08:06 Dose: 1,000 mg Venlafaxine HCl (Effexor Xr) 75 mg PO DAILY [facility] Last Admin: 05/24/18 08:06 Dose: 75 mg Discontinued Medications Acetaminophen (Tylenol) 650 mg PO Q6H [facility] Last Admin: 05/21/18 06:11 Dose: Not Given Ceftriaxone Sodium (Rocephin) 1 gm IVPUSH ONETIME ONE Stop: 05/20/18 05:02 Last Admin: 05/20/18 05:09 Dose: 1 gm Sodium Chloride (Normal Saline) 1,000 mls @ 999 mls/hr IV .BOLUS ONE Stop: 05/20/18 04:59 Last Admin: 05/20/18 04:40 Dose: 999 mls/hr Sodium Chloride (Normal Saline) 1,000 mls @ 125 mls/hr IV ASDIRECTED [facility] Last Admin: 05/22/18 02:33 Dose: 125 mls/hr Magnesium Sulfate 2 gm/ Premix 50 mls @ 150 mls/hr IV ONETIME ONE Stop: 05/20/18 14:52 Last Admin: 05/20/18 15:20 Dose: Not Given Magnesium Sulfate 2 gm/ Premix 50 mls @ 50 mls/hr IV ONETIME ONE Stop: 05/20/18 16:59 Magnesium Sulfate 2 gm/ Premix 50 mls @ 50 mls/hr IV ONETIME ONE Stop: 05/20/18 16:58 Last Admin: 05/20/18 16:35 Dose: 50 mls/hr Sodium Chloride (Normal Saline) 1,000 mls @ 125 mls/hr IV ASDIRECTED [facility] Stop: 05/20/18 14:00 Last Admin: 05/20/18 05:40 Dose: 125 mls/hr Sodium Chloride (Normal Saline) 1,000 mls @ 65 mls/hr IV ASDIRECTED [facility] Last Admin: 05/22/18 21:27 Dose: 65 mls/hr Magnesium Sulfate 2 gm/ Premix 50 mls @ 12.5 mls/hr IV ONETIME ONE Stop: 05/23/18 14:50 Last Admin: 05/23/18 14:38 Dose: 12.5 mls/hr Multivitamins/Minerals (Centrum) 1 tab PO DAILY@0300 [facility] Last Admin: 05/21/18 06:11 Dose: Not Given Omeprazole (First-Omeprazole) 0 each GTUBE ACBREAKFAST [facility] Last Admin: 05/20/18 12:48 Dose: Not Given Ptom Atovaquone (750mg/5ml Suspension) 10 each PO DAILY@1300 [facility] Valacyclovir 1000 Mg (Tab*Pt Own Med*) 0 each PO TID [facility] Last Admin: 05/22/18 14:07 Dose: 1 each Valacyclovir 1000 Mg (Tab*Pt Own Med*) 0 each PO ONETIME ONE Stop: 05/20/18 15:16 Last Admin: 05/20/18 15:37 Dose: 1,000 each Tacrolimus 1 Mg Cap* (Pt Own Med*) 0 each PO ONETIME ONE Stop: 05/20/18 15:16 Last Admin: 05/20/18 15:39 Dose: 1 each Sodium Chloride (Syrex Flush) 5 ml FLUSH Q8HR PRN PRN Reason: Keep Vein Open Sodium Chloride (Saline Flush) 10 ml FLUSH Q8HR [facility] Tacrolimus (Prograf) 1 mg PO BID [facility] Last Admin: 05/20/18 15:21 Dose: Not Given Tramadol HCl (Ultram) 50 mg PO BID [facility] Last Admin: 05/21/18 08:04 Dose: 50 mg Valacyclovir HCl (Valtrex) 1,000 mg PO TID [facility] Last Admin: 05/20/18 15:21 Dose: Not Given Venlafaxine HCl (Effexor Xr) 75 mg PO DAILY [facility] Last Admin: 05/21/18 13:53 Dose: Not Given Venlafaxine HCl (Effexor Xr) 75 mg PO DAILY [facility] - Exam Quality Assessment: Skin Breakdown (Present on admission coccyx redness). No: Supplemental Oxygen General: Alert. No: Oriented Neck: Supple Lungs: Clear to Auscultation, Normal Respiratory Effort Cardiovascular: Regular Rate, Regular Rhythm GI/Abdominal Exam: Normal Bowel Sounds, Soft, Non-Tender. No: No Distention, Distended, Guarding (Male) Exam: Deferred Peripheral Pulses: 2+: Radial (R), Femoral (L) Wound/Incisions: Erythema, Other (GET cream apply to coccyx perineal area) Neurological: Normal Tone, Sensation Intact. No: Normal Gait Psy/Mental Status: Alert, Labile Mood - Problem List Review Problem List Initiated/Reviewed/Updated: Yes - My Orders Last 24 Hours: My Active Orders 05/23/18 11:00 D5 1/2 NS w/ 40 mEq/L KCl 1,000 ml IV ASDIRECTED Potassium Bicarb/Potassium Chl [Potassium Chloride, Effervescent] 25 meq PO DAILY Zinc Oxide [Kmed] 0 ml TOP BID PRN 05/23/18 12:14 Chest 1V Frontal [CR] Routine - Plan Plan:: HPI: This is a 72 year old male who was brought to the ED via ambulance due to altered mental status and hypotension. The patient resides at [facility]. He had been seen on the morning on 05/19/18 in the ED as well as he had pulled his PEG tube out. The ED provider was able to replace this and sent him back to the senior care. When the patient arrived a second time due to the above mentioned symptoms, it was again noted by the senior care that he had pulled his PEG tube out. EMS noted systolic blood pressures in the 90s. The patient has a history of being somnolent and minimally communicative. The patient is typically followed by Dr. Castaneda in [place], [place] for his primary care. The patient has a history of MDS/Myeloproliferative disorder and is followed by oncology. He is status post non-myeloablative peripheral blood stem cell transplant at the [facility] on 02/23/17. His sister was the donor. Patient's notes he had to have his gallbladder removed in December 2017 and he has been deconditioned since that time. She notes that the segal catheter was placed after that surgery (December 2017). She states he has pulled the catheter out a few times, but it has always been put back in. She is unsure why. Other history, patient was recently discharged from [facility] for nutritional therapy, antibiotics, wound care and decreased mentation. She had underwent a laparoscopic cholecystectomy at the [facility] which was complicated after he developed right upper quadrant fluid/abscess collection which resulted in drain placement. He required antibiotics and the drain was eventually removed. 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 His flareup included him having terminal ileitis was placed on high dose prednisone along with chronic immunosuppressant medications. Due to high dose prednisone he became severely delirious far above his baseline however he improved greatly after he was weaned from the steroids. Pertinent ED workup: WBC 10.4 with left shift Hgb 11.7 (baseline) Lactic acid 1.0 Calcium 7.7 corrects to 9.6 Alk phos 436 (down from 571 a couple months ago) UA revealed positive nitrites & many bacteria Head CT negative Chest x-ray negative Abdominal x-ray negative for acute pathology EKG-sinus tachycardia with premature supraventricular complexes (changed from previous EKG (2015) that noted NSR) Troponin 0.05 Given 1 liter of NS and started on IV rocephin Primary Impression/Plan: UTI. Complicated, likely colonization and catheter associated due to indwelling Segal. Segal was discontinued. Continue rocephin. Culture showing gram-negative and gram-positive rods. ESBL a concern Aerobic blood culture positive for gram- positive cocci. Sensitivity reports remain pending. Pancytopenia, likely due to recent transplant and immunosuppressive therapy, monitor levels carefully History of UAR; due to catheter-associated infection and concern for ESBL his Segal catheter was removed, though he does have significant spontaneous urinary incontinence ongoing--PVR demonstrates 400-500 retention--indwelling Segla catheter be replaced. Delirium, chronic, Now at baseline, afebrile, PEG tube displacement, Patient has pulled out the PEG tube x2, Will hold off on re-insertion as per senior care report patient has been eating orally and only using the tube for a few medications for the past week. agreeable to leave tube out. Will continue to monitor site. Daily weights, monitor nutritional status Hypomagnesemia. Mild, magnesium level has improved however appears to require IV magnesium replacement weekly as he does have decrease oral intake. PICC line was removed 2/2 surrounding skin break down with sepsis/infection concerns , cultured catheter tip did demonstrate gram-positive cocci. Doubtful patient can maintain magnesium levels orally. PICC line replacement today. Monitor calcium and potassium carefully. Buttock abrasions, POA. Barrier cream applied. GET ointment. Secondary Impression/Plan: History of atrial fib/flutter, s/p ablation. History of viral overload & EBV. Question if this is the reason for valtrex use. HLD, ROXANE MDS/Myeloproliferative disorder. Patient is followed by Dr. Anne, oncologist at [facility]. He was recently seen by her on 05/11/18. She had decreased his lopressor at that visit as he was hypotensive. care home note states Dr. Anne was contacted (05/19/18) about a elevated tacrolimus level. She ordered for it to be held day before admission however now at baseline dosing; level drawn -- pending. Will proceed with oncology's instructions. 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 Chronic anemia, stable. Hgb 10.5 GERD. On PPI. Type 2 diabetes mellitus. Accuchecks QID. Levemir 5 units nightly. Will provide low dose sliding scale novolog. Osteoarthritis of multiple joints. Continue tylenol and tramadol. DVT prophylaxis. Score of 6. Lovenox daily. Monitor platelets Overall plan: Segal catheter replacement as patient has ongoing incontinence although increase PVR. PICC line replacement today. Likely anticipate discharge back to [facility] facility tomorrow.
[2018-05-24] MEDS: D5 1/2 NS w/ 40 mEq/L KCl 1,000 ML IV SCH (10:59)
[2018-05-24] MEDS ORDERED: Sodium Chloride 0.9% with KCl 1,000 ML IV SCH (11:30)
[2018-05-24] MEDS: ATOVAQUONE 750 MG/5 ML PO SCH ×2 (11:50→12:36)
[2018-05-24] MEDS: Zinc Oxide/Eucerin/Nystatin/Karaya 237 ML JAR TOP PRN (11:52)
[2018-05-24] MEDS ORDERED: Potassium Bicarbonate/Potassium Chloride 25 MEQ Tab.Eff PO ONE (12:00)
[2018-05-24] MEDS: Potassium Chloride 20 MEQ Packet PO SCH (12:05)
[2018-05-24] MEDS: Enoxaparin 40 MG/0.4 ML Syringe SUBCUT SCH (14:02)
[2018-05-24] MEDS: Tamsulosin 0.4 MG Cap.ER PO SCH (18:15)
[2018-05-24] MEDS: QUEtiapine 25 MG Tab PO SCH (20:20)
[2018-05-24] MEDS: Insulin Detemir 100 Units/ML 3 ML Pen SUBCUT SCH (20:56)
[2018-05-25] MEDS: traMADol 50 MG Tab PO PRN (04:52)
[2018-05-25] MEDS: cefTRIAXone 1 GM Vial IVPUSH SCH (05:00)
[2018-05-25] MEDS: Acetaminophen 325 MG Tab PO SCH (05:07)
[2018-05-25] MEDS: Sucralfate 1 GM Tab PO SCH (08:03)
[2018-05-25] MEDS: Insulin Aspart 100 Units/ML 3 ML Pen SUBCUT SCH (08:03)
[2018-05-25] MEDS: Magnesium Oxide 500 MG Tab PO SCH (08:03)
[2018-05-25] MEDS: Omeprazole 20 MG Cap.CR PO SCH (08:03)
[2018-05-25] MEDS: Multivitamins with Minerals/Iron/Folic Acid/Lycopene Tab PO SCH (08:05)
[2018-05-25] MEDS: URSODIOL 300 MG PO SCH (08:05)
[2018-05-25] MEDS: Venlafaxine 37.5 MG Cap.ER PO SCH (08:06)
[2018-05-25] MEDS: predniSONE 5 MG Tab PO SCH (08:08)
[2018-05-25] MEDS: TACROLIMUS 1 MG PO SCH (08:09)
[2018-05-25] MEDS: Carboxymethylcellulose Sodium 0.5% Ophth Soln 15 ML Bottle EYEBOTH SCH (08:09)
[2018-05-25] MEDS: traMADol 50 MG Tab PO SCH (08:15)
[2018-05-25] MEDS: POSACONAZOLE PO SCH ×2 (08:16→08:37)
[2018-05-25] MEDS: Sodium Chloride 0.9% 10 ML Syringe IV SCH (08:17)
[2018-05-25] MEDS: Metoprolol Tartrate 25 MG Tab PO SCH (08:23)
[2018-05-25] MEDS: Zinc Oxide/Eucerin/Nystatin/Karaya 237 ML JAR TOP PRN (08:24)
[2018-05-25] MEDS: valACYclovir 1,000 MG Tab PO SCH (09:38)
--- NOTE | 2018-05-25 10:03 | PCM.DCSUM1 ---
Discharge Summary - Hospital Course Diagnosis: Stroke: No - Discharge Data Discharge Date: 05/25/18 Discharge Disposition: DC/Tfer to SNF 03 Condition: Fair - Patient Instructions Diet: Diabetic Diet Activity: As Tolerated Driving: Do Not Drive Showering/Bathing: May Shower Notify Provider of: Fever, Nausea and/or Vomiting - Discharge Plan *PRESCRIPTION DRUG MONITORING PROGRAM REVIEWED*: Not Applicable *COPY OF PRESCRIPTION DRUG MONITORING REPORT IN PATIENT TY: Not Applicable Prescriptions/Med Rec: Omeprazole 20 mg PO ACBREAKFAST #30 cap.cr Sulfamethoxazole/Trimethoprim [Bactrim 400-80 MG] 1 each PO BID #20 tablet Home Medications: Home Meds Acetaminophen [Tylenol Solution 160 MG/5 ML] 649.6 mg PO QID@00,06,12,18 [History] Atovaquone 10 ml PO DAILY@1300 05/19/18 [History] Bisacodyl [Biscolax] 10 mg RC DAILY PRN 05/19/18 [History] Dextran 70/Hypromellose [Artificial Tears] 1 drop EYEBOTH TID 05/19/18 [History] Guar Gum [Nutrisource Fiber] 4 gram PO TID 05/19/18 [History] Insulin Aspart [NovoLOG] 0 unit SUBCUT WITHMEALSANDBED PRN 05/19/18 [History] Magnesium Hydroxide [Milk of Magnesia] 30 ml PO DAILY PRN 05/19/18 [History] Magnesium Oxide 400 mg PO 5XDAY 05/19/18 [History] Metoprolol Tartrate 12.5 mg PO BID 05/19/18 [History] Multivitamin [Daily Multiple Vitamin] 1 tab PO DAILY@0300 05/19/18 [History] NaPh,Mb-Db/K Ph,MB-DB [Phos-NaK Powder] 1 each PO BID 05/19/18 [History] Potassium Bicarbonate/Cit Ac [Effer-K] 20 meq PO DAILY@1300 05/19/18 [History] QUEtiapine Fumarate [Quetiapine Fumarate] 12.5 mg PO BEDTIME 05/19/18 [History] Sodium Chloride 0.9% [Saline Flush Sterile Syringe] 10 ml FLUSH BID 05/19/18 [ History] Sucralfate [Carafate] 10 ml PO QID@03,,,05/19/18 [History] Tacrolimus [Prograf] 1 mg PO BID@0800,1800 05/19/18 [History] Tamsulosin HCl [Flomax] 0.8 mg PO DAILY@1800 05/19/18 [History] Ursodiol 300 mg PO TID@0700,1200,1800 05/19/18 [History] predniSONE [Prednisone] 2.5 mg PO DAILY 05/19/18 [History] traMADol [Ultram] 50 mg PO BID@0600,1800 05/19/18 [History] valACYclovir HCl [valACYclovir] 1,000 mg PO TID 05/19/18 [History] traMADol HCl [Tramadol HCl] 50 mg PO QID PRN 05/20/18 [History] Cholecalciferol (Vitamin D3) [Vitamin D3] 2,000 units PO DAILY@0300 05/21/18 [ History] Venlafaxine HCl [Venlafaxine ER] 75 mg PO DAILY 05/21/18 [History] Noxafil 200 mg PO TID@0900,1500,2100 #0 05/25/18 [Rx] Omeprazole 20 mg PO ACBREAKFAST #30 cap.cr 05/25/18 [Rx] Sulfamethoxazole/Trimethoprim [Bactrim 400-80 MG] 1 each PO BID #20 tablet 05/25 [Rx] - Discharge Summary/Plan Comment DC Time >30 min.: Yes Discharge Summary/Plan Comment: Final diagnosis UTI. Complicated, likely colonization Bacteremia Pancytopenia, likely due to recent transplant and immunosuppressive therapy UAR; Segal Delirium, chronic, PEG tube displacement Hypomagnesemia. Mild Buttock abrasions, POA Secondary diagnosis MDS/Myeloproliferative disorder History of atrial fib/flutter, s/p ablation. History of viral overload & EBV. 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 History of CMV on prophylaxis. Chronic anemia, stable. GERD. T2DM Osteoarthritis of multiple joints. History Chavez is a 72 year old male who was brought to the ED via ambulance due to AMS and hypotension. The patient resides at [facility]. He had been seen on the morning on 05/19/18 in the ED as well as he had pulled his PEG tube out. The ED provider was able to replace this and [facility]. When the patient arrived a second time due to ongoing low blood pressure and AMS it was again noted by the jail that he had pulled his PEG tube out. EMS noted systolic blood pressures in the 90s. The patient has a history of being somnolent and minimally communicative. The patient is typically followed by Dr. Castaneda in [place], [place] for his primary care. The patient has a history of MDS/Myeloproliferative disorder and is followed by oncology. He is status post non-myeloablative peripheral blood stem cell transplant at the [facility] on 02/23/17 which he received sibling donor. Patient's notes he had to have his gallbladder removed in December 2017 and he has been deconditioned since that time. She notes that the segal catheter was placed after that surgery (December 2017). She states he has pulled the catheter out a few times, but it has always been put back in. Pertinent ED workup: WBC 10.4 with left shift Hgb 11.7 (baseline) Lactic acid 1.0 Calcium 7.7 corrects to 9.6 Alk phos 436 (down from 571 a couple months ago) UA revealed positive nitrites & many bacteria Head CT negative Chest x-ray negative Abdominal x-ray negative for acute pathology EKG-sinus tachycardia with premature supraventricular complexes (changed from previous EKG (2016) that noted NSR) Troponin 0.05 Given 1 liter of NS and started on IV rocephin BC and urine cultures were drawn. Hospital course She has hospital course was complicated by the fact that he had pulled his PEG tube out making it more difficult to administer proper amount of calories and fluids along with medications early on in his hospital stay. Over time he did appear to be taken adequate foods however at times refused many of his medications. He received magnesium orally multiple times a day however do to decreasing levels of magnesium he did require IV magnesium along with potassium supplementation. He received Rocephin to his UTI. His PICC line was discontinued as the site in his left arm appeared to be infected--this was eventually replaced into his right arm the day prior to discharge. Segal catheter was discontinued due to urinary tract infection and multiple attempts to trial without catheter somewhat failed however he did have multiple episodes of incontinent however post-void residuals continually demonstrated 400-500 cc postvoid residual so Segal catheter was eventually placed back in and he will be discharged on this. He did have pancytopenia however likely due to recent transplant and immunosuppressive therapy, his levels were monitored levels carefully. Urine culture demonstrated Culture showing gram-negative and gram- positive rods with the sensitivity report returning the day of discharge as Klebsiella oxytoca and stenotrophomonas maltophilia--sensitive to ciprofloxacin. He did have enterococcus faecalils that reported out on blood cultures day of discharge however patient nontoxic, good blood pressure, afebrile no signs of sepsis normal lactic acid and appeared to clinically respond to ceftriaxone. He did have significant Buttock abrasions, POA and Barrier cream applied with Kmed. 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 DVT prophylaxis. Score of 6. Lovenox daily. Platelets were monitored. For his T2DM mellitus his long-acting insulin had been held 48 hours prior to discharge. He will be discontinued from this and monitor carefully. Medication changes/changes on discharge Bactrim 400/81 tab by mouth twice a day for 10 days. (regular strength due to likely interaction with Atovaquone) Levemir, discontinued PEG tube medication changed to oral Disposition Patient will be discharged back to SNF, Patient nontoxic, afebrile, blood pressure good. Nurses are to report fevers, decrease altered mental status, chills, signs of sepsis. BMP with magnesium levels Monday. With his PCP in [place], [place] next week. - Patient Data Vitals - Most Recent: Last Vital Signs Temp 98.9 F 05/25/18 06:06 Pulse 73 05/25/18 08:23 Resp 18 05/25/18 06:06 BP 111/66 05/25/18 08:23 Pulse Ox 100 05/25/18 06:06 Weight - Most Recent: 136 lb 2 oz I&O - Last 24 hours: Intake & Output 05/24/18 05/25/18 05/25/18 22:59 06:59 14:59 Intake Total 320 425 Output Total 200 600 Balance 120 -175 Lab Results - Last 24 hrs: Laboratory Results - last 24 hr 05/24/18 05/24/18 05/24/18 Range/Units 11:05 17:59 20:47 POC Glucose 166 H 116 H 114 H (74-106) mg/dl 05/25/18 Range/Units 07:28 POC Glucose 97 (74-106) mg/dl KARO Results - Last 24 hrs: Microbiology 05/20/18 03:55 Bacterial ID and Susceptibility - Preliminary Urine - Segal Catheter Klebsiella Oxytoca Stenotrophomonas Maltophilia Gram Positive Cocci 05/20/18 06:45 Bacterial Identification - Final Blood - Venous Enterococcus Faecalis 05/20/18 07:30 Bacterial Identification - Preliminary Blood - Venous - Lab Draw Gram Negative Rods 05/20/18 06:20 Miscellaneous Reference Culture - Final Wound - Abdomen Staphylococcus Aureus Gram Stain - Final 05/20/18 06:10 Miscellaneous Reference Culture - Preliminary Wound - Arm, Left Staphylococcus Aureus Citrobacter Freundii Enterococcus Species Gram Stain - Final 05/21/18 12:45 Miscellaneous Reference Culture - Preliminary Wound - Picc Line Enterococcus Species Gram Negative Rods Gram Stain - Final 05/20/18 10:30 Miscellaneous Reference Culture - Preliminary Wound - Arm, Left Staphylococcus Aureus Enterococcus Species Gram Stain - Final 05/20/18 06:00 Miscellaneous Reference Culture - Preliminary Wound - Arm, Right Staphylococcus Coagulase Neg Gram Stain - Final Med Orders - Current: Current Medications Acetaminophen (Tylenol) 650 mg PO 0600,1200,1800,2300 [facility] Last Admin: 05/25/18 05:07 Dose: 650 mg Artificial Tears (Refresh Tears 0.5%) 0 ml EYEBOTH TID [facility] Last Admin: 05/25/18 08:09 Dose: Not Given Ceftriaxone Sodium (Rocephin) 1 gm IVPUSH Q24H [facility] Last Admin: 05/25/18 05:00 Dose: 1 gm Enoxaparin Sodium (Lovenox) 40 mg SUBCUT Q24H [facility] Last Admin: 05/24/18 14:02 Dose: 40 mg Potassium Chloride/Sodium Chloride (Normal Saline With 40 Meq Kcl) 1,000 mls @ 50 mls/hr IV ASDIRECTED [facility] Last Admin: 05/24/18 11:45 Dose: 50 mls/hr Insulin Aspart (Novolog) 0 unit SUBCUT WITHMEALSANDBED [facility]; Protocol Last Admin: 05/25/18 08:03 Dose: Not Given Insulin Detemir (Levemir) 5 unit SUBCUT BEDTIME [facility] Last Admin: 05/24/18 20:56 Dose: Not Given Magnesium Oxide (Magnesium Oxide) 500 mg PO 5XDAY [facility] Last Admin: 05/25/18 08:03 Dose: 500 mg Metoprolol Tartrate (Lopressor) 12.5 mg PO BID [facility] Last Admin: 05/25/18 08:23 Dose: 12.5 mg Multi-Ingred Cream/Lotion/Oil/Oint (Kmed) 0 ml TOP BID PRN PRN Reason: skin degradation Last Admin: 05/25/18 08:24 Dose: 1 applic Multivitamins/Minerals (Centrum) 1 tab PO DAILY [facility] Last Admin: 05/25/18 08:05 Dose: 1 tab Omeprazole (Omeprazole) 20 mg PO ACBREAKFAST [facility] Last Admin: 05/25/18 08:03 Dose: 20 mg Ptom Noxafil ( Posaconazole) 200mg/5ml Susp 5 each PO TID [facility] Last Admin: 05/25/18 08:37 Dose: Not Given Ptom Ursodiol (300 Mg Capsule) 300 each PO TIDMEALS [facility] Last Admin: 05/25/18 08:05 Dose: 300 each Tacrolimus 1 Mg Cap* (Pt Own Med*) 0 each PO BID [facility] Last Admin: 05/25/18 08:09 Dose: 1 each Ptom Atovaquone (750mg/5ml Suspension) 10 each PO DAILY@1300 [facility] Last Admin: 05/24/18 12:36 Dose: Not Given Potassium Bicarb/Potassium Chloride (Potassium Chloride, Effervescent) 25 meq PO DAILY [facility] Last Admin: 05/24/18 08:21 Dose: Not Given Potassium Chloride (Klor-Con) 20 meq PO DAILY@1300 [facility] Last Admin: 05/24/18 12:05 Dose: Not Given Prednisone (Prednisone) 2.5 mg PO DAILY [facility] Last Admin: 05/25/18 08:08 Dose: 2.5 mg Quetiapine Fumarate (Seroquel) 12.5 mg PO BEDTIME [facility] Last Admin: 05/24/18 20:20 Dose: 12.5 mg Sodium Chloride (Saline Flush) 10 ml IV BID [facility] Last Admin: 05/25/18 08:17 Dose: 10 ml Sucralfate (Carafate) 1 gm PO QIDACANDBED [facility] Last Admin: 05/25/18 08:03 Dose: 1 gm Tamsulosin HCl (Flomax) 0.8 mg PO DAILY@1800 [facility] Last Admin: 05/24/18 18:15 Dose: 0.8 mg Tramadol HCl (Ultram) 50 mg PO QID PRN PRN Reason: Pain Last Admin: 05/25/18 04:52 Dose: 50 mg Tramadol HCl (Ultram) 50 mg PO BID@0800,1800 [facility] Last Admin: 05/25/18 08:15 Dose: 50 mg Valacyclovir HCl (Valtrex) 1,000 mg PO TID [facility] Last Admin: 05/25/18 09:38 Dose: Not Given Venlafaxine HCl (Effexor Xr) 75 mg PO DAILY [facility] Last Admin: 05/25/18 08:06 Dose: 75 mg Discontinued Medications Acetaminophen (Tylenol) 650 mg PO Q6H [facility] Last Admin: 05/21/18 06:11 Dose: Not Given Ceftriaxone Sodium (Rocephin) 1 gm IVPUSH ONETIME ONE Stop: 05/20/18 05:02 Last Admin: 05/20/18 05:09 Dose: 1 gm Sodium Chloride (Normal Saline) 1,000 mls @ 999 mls/hr IV .BOLUS ONE Stop: 05/20/18 04:59 Last Admin: 05/20/18 04:40 Dose: 999 mls/hr Sodium Chloride (Normal Saline) 1,000 mls @ 125 [facility] Admin: 05/22/18 02:33 Dose: 125 mls/hr Magnesium Sulfate 2 gm/ Premix 50 mls @ 150 mls/hr IV ONETIME ONE Stop: 05/20/18 14:52 Last Admin: 05/20/18 15:20 Dose: Not Given Magnesium Sulfate 2 gm/ Premix 50 mls @ 50 mls/hr IV ONETIME ONE Stop: 05/20/18 16:59 Magnesium Sulfate 2 gm/ Premix 50 mls @ 50 mls/hr IV ONETIME ONE Stop: 05/20/18 16:58 Last Admin: 05/20/18 16:35 Dose: 50 mls/hr Sodium Chloride (Normal Saline) 1,000 mls @ 125 mls/hr IV ASDIRECTED [facility] Stop: 05/20/18 14:00 Last Admin: 05/20/18 05:40 Dose: 125 mls/hr Sodium Chloride (Normal Saline) 1,000 [facility]ls [facility] Admin: 05/22/18 21:27 Dose: 65 mls/hr Potassium Chloride/Dextrose/Sod Cl (D5 1/2 Ns W/ 40 Meq/L Kcl) 1,000 mls @ 50 mls/hr IV ASDIRECTED [facility] Last Admin: 05/24/18 10:59 Dose: 50 mls/hr Magnesium Sulfate 2 gm/ Premix 50 mls @ 12.5 mls/hr IV ONETIME ONE Stop: 05/23/18 14:50 Last Admin: 05/23/18 14:38 Dose: 12.5 mls/hr Multivitamins/Minerals (Centrum) 1 tab PO DAILY@0300 [facility] Last Admin: 05/21/18 06:11 Dose: Not Given Omeprazole (First-Omeprazole) 0 each GTUBE ACBREAKFAST [facility] Last Admin: 05/20/18 12:48 Dose: Not Given Ptom Atovaquone (750mg/5ml Suspension) 10 each PO DAILY@1300 [facility] Valacyclovir 1000 Mg (Tab*Pt Own Med*) 0 each PO TID [facility] Last Admin: 05/22/18 14:07 Dose: 1 each Valacyclovir 1000 Mg (Tab*Pt Own Med*) 0 each PO ONETIME ONE Stop: 05/20/18 15:16 Last Admin: 05/20/18 15:37 Dose: 1,000 each Tacrolimus 1 Mg Cap* (Pt Own Med*) 0 each PO ONETIME ONE Stop: 05/20/18 15:16 Last Admin: 05/20/18 15:39 Dose: 1 each Potassium Bicarb/Potassium Chloride (Potassium Chloride, Effervescent) 25 meq PO ONETIME ONE Stop: 05/24/18 12:01 Last Admin: 05/24/18 11:50 Dose: 25 meq Sodium Chloride (Syrex Flush) 5 ml FLUSH Q8HR PRN PRN Reason: Keep Vein Open Sodium Chloride (Saline Flush) 10 ml FLUSH Q8HR [facility] Tacrolimus (Prograf) 1 mg PO BID [facility] Last Admin: 05/20/18 15:21 Dose: Not Given Tramadol HCl (Ultram) 50 mg PO BID [facility] Last Admin: 05/21/18 08:04 Dose: 50 mg Valacyclovir HCl (Valtrex) 1,000 mg PO TID [facility] Last Admin: 05/20/18 15:21 Dose: Not Given Venlafaxine HCl (Effexor Xr) 75 mg PO DAILY [facility] Last Admin: 05/21/18 13:53 Dose: Not Given Venlafaxine HCl (Effexor Xr) 75 mg PO DAILY [facility]
== END 2018-05-25 12:05 | DRG 689 ==
LOC: KA.ED 03:34 → KA.MS 05:30
PROVIDERS: ADMIT Physician Assistant Medical; ATTEND Family Medicine
DX: N39.0 Urinary tract infection, site not specified (principal); B20 Human immunodeficiency virus [HIV] disease; R78.81 Bacteremia; D47.1 Chronic myeloproliferative disease; D89.811 Chronic graft-versus-host disease; B25.9 Cytomegaloviral disease, unspecified; K94.23 Gastrostomy malfunction; D46.9 Myelodysplastic syndrome, unspecified; C94.6 Myelodysplastic disease, not elsewhere classified; D61.818 Other pancytopenia; R41.0 Disorientation, unspecified; R41.82 Altered mental status, unspecified; E83.42 Hypomagnesemia; S30.810A Abrasion of lower back and pelvis, initial encounter; R00.0 Tachycardia, unspecified; I95.9 Hypotension, unspecified; I48.91 Unspecified atrial fibrillation; E78.5 Hyperlipidemia, unspecified; R32 Unspecified urinary incontinence; G47.33 Obstructive sleep apnea (adult) (pediatric); D50.0 Iron deficiency anemia secondary to blood loss (chronic); K21.9 Gastro-esophageal reflux disease without esophagitis; E11.9 Type 2 diabetes mellitus without complications; M19.90 Unspecified osteoarthritis, unspecified site; F03.90 Unspecified dementia, unspecified severity, without behavioral disturbance, psychotic disturbance, mood disturbance, and anxiety; F19.959 Other psychoactive substance use, unspecified with psychoactive substance-induced psychotic disorder, unspecified; Z88.8 Allergy status to other drugs, medicaments and biological substances; Z79.899 Other long term (current) drug therapy; Z79.4 Long term (current) use of insulin; Z79.01 Long term (current) use of anticoagulants
CPT/HCPCS: 36415; 36569; 51701; 51702; 51798; 70450; 71045; 74018; 80048; 80053; 80197; 81001; 82550; 82553; 82962; 83605; 83735; 84484; 85025; 87040; 87070; 87077; 87086; 87088; 87186; 87205; 93005; 96361; 96374; 99285; A9270-GY; J0696; J1650; J1815-GY; J3475; J3480; J7030